=== PATIENT | male | born 1990 | race Caucasian/White ===

== ENCOUNTER → 2017-02-11 15:24 | Emergency (ER) | payer SELFPAY ==
[2017-02-11 16:09] LABS: Hematocrit 42 % (42-52); Hemoglobin 14.8 g/dl (14.0-18.0); Mean Corpuscular HGB Conc 35 g/dl (31-36); Mean Corpuscular Hemoglobin 30 pg (27-31); Mean Corpuscular Volume 86 fL (80-94); Mean Platelet Volume 8 um3 (7.4-10.4); Red Blood Count 4.91 10^6/ul (4.0-5.4); Red Cell Distribution Width 13 % (10.5-15)
[2017-02-11 16:55] LABS: Acetaminophen < 15 mcg/mL; Alcohol < 10 mg/dL (<10); Salicylate < 2.50 mg/dL (<30)
[2017-02-11 17:02] LABS: TSH (Thyroid Stimulating Horm) 0.15 mcIU/mL (0.34-5.60)
[2017-02-11 17:19] LABS: Urine Bilirubin Negative (Negative); Urine Glucose Negative (Negative); Urine Nitrite Negative (Negative)
[2017-02-11 17:24] LABS: ALT 14 U/L (7-52); AST 13 U/L (13-39); Albumin 4.5 g/dL (3.2-5.2); Alkaline Phosphatase 72 U/L (34-104); Anion Gap 7 mmol/L (2-11); BUN/Creatinine Ratio 16.1 (8-20); Blood Urea Nitrogen 14 mg/dL (6-24); CO2 Carbon Dioxide 25 mmol/L (22-32); Calcium 9.4 mg/dL (8.6-10.3); Chloride 104 mmol/L (101-111); EGFR African American 135.4 (>60); EGFR Non-African American 105.3 (>60); Globulin 3.2 g/dL (2-4); Glucose 96 mg/dL (70-100); Potassium 4.1 mmol/L (3.5-5.0); Sodium 136 mmol/L (133-145); Total Protein 7.7 g/dL (6.4-8.9)
[2017-02-11 17:27] LABS: Benzodiazepine Urine Screen None Detected (None Detect)
[2017-02-11 21:20] VITALS: BP 122/54
--- NOTE | 2017-02-13 20:59 | ED ---
Casimiro Lewis Angela, scribed for Kofi Stewart MD on 02/11/17 at 1542 . Psychiatric Complaint - HPI Summary HPI Summary: This pt is a 27 y/o male accompanied by his mother c/o opiates addiction x5 years. Pt reports that he "feels like he can't do anything without them" and gets anxiety. He states he snorts and takes pills PO, the last time he used was yesterday. Pt notes his mother convinced him to come to the ED as he didn't want to come. He denies SI or HI. Pt has never had mental evaluation in the past but is requesting one now. PMHx: depression (does not take medications for this). - History Of Current Complaint Chief Complaint: EDMentalHealth Time Seen by Provider: 02/11/17 15:34 Hx Obtained From: Patient Onset/Duration: Lasting Weeks - 5 years Timing: Weeks - 5 years Aggravating Factor(s): Drug Use - opiates Alleviating Factor(s): Other Has Suicidal: Denies: Thoughts, With A Plan Has Homicidal: Denies: Thoughts, With A Plan - Allergies/Home Medications Allergies/Adverse Reactions: Allergies Allergy/AdvReac Type Severity Reaction Status Date / Time [facility] Allergy Unknown Verified 02/11/17 16:22 Reaction Details PMH/Surg Hx/FS Hx/Imm Hx Endocrine/Hematology History: Denies: Hx Diabetes, Hx Thyroid Disease Cardiovascular History: Denies: Hx Hypertension Respiratory History: Reports: Hx Asthma Denies: Hx Chronic Obstructive Pulmonary Disease (COPD) GI History: Denies: Hx Ulcer Psychiatric History: Reports: Hx Depression, Hx Substance Abuse - Surgical History Surgery Procedure, Year, and Place: tonsillectomy - Immunization History Date of Tetanus Vaccine: last year, according to patient Infectious Disease History: No Infectious Disease History: Denies: Hx Clostridium Difficile, Hx Hepatitis, Hx Human Immunodeficiency Virus (HIV), Hx of Known/Suspected MRSA, Hx Shingles, Hx Tuberculosis, Hx Known/ Suspected VRE, Hx Known/Suspected VRSA, History Other Infectious Disease, Traveled Outside the [place] in Last 30 Days - Family History Known Family History: Negative: Hypertension, Diabetes - Social History Alcohol Use: Occasionally Substance Use Type: Reports: Marijuana Smoking Status (MU): Former Smoker Type: Cigarettes Amount Used/How Often: 5-10 daily Review of Systems Positive: Other - addiction to opiates. Negative: Fever, Chills ENT: Negative Cardiovascular: Negative Respiratory: Negative Gastrointestinal: Negative Genitourinary: Negative Positive: Anxious. Negative: Other - SI, HI All Other Systems Reviewed And Are Negative: Yes Physical Exam - Summary Physical Exam Summary: VITAL SIGNS: Reviewed. GENERAL: Patient is a well-developed and nourished female who is lying comfortable in the stretcher. Patient is not in any acute respiratory distress. HEAD AND FACE: No signs of trauma. ~No ecchymosis, hematomas or skull depressions. No sinus tenderness. EYES: PERRLA, EOMI x 2, No injected conjunctiva, no nystagmus. EARS: Hearing grossly intact. Ear canals and tympanic membranes are within normal limits. MOUTH: Oropharynx within normal limits. NECK: Supple, trachea is midline, no adenopathy, no JVD, no carotid bruit, no c- spine tenderness, neck with full ROM. CHEST: Symmetric, no tenderness at palpation LUNGS: Clear to auscultation bilaterally. No wheezing or crackles. CVS: Regular rate and rhythm, S1 and S2 present, no murmurs or gallops appreciated. ABDOMEN: Soft, non-tender. No signs of distention. No rebound no guarding, and no masses palpated. Bowel sounds are normal. EXTREMITIES: FROM in all major joints, no edema, no cyanosis or clubbing. NEURO: Alert and oriented x 3. No acute neurological deficits. Speech is normal and follows commands. SKIN: Dry and warm PSYCH: Depressed, quiet, and denies any suicidal thoughts or plan. No homicidal thoughts or plan. No signs of psychosis or pressure speech. No tangential speech. Triage Information Reviewed: Yes Vital Signs On Initial Exam: Initial Vitals Temp Pulse Resp BP Pulse Ox 98.7 F 84 18 128/72 97 02/11/17 15:25 02/11/17 15:25 02/11/17 15:25 02/11/17 15:25 02/11/17 15:25 Vital Signs Reviewed: Yes Diagnostics - Vital Signs Vital Signs Temp Pulse Resp BP Pulse Ox 02/11/17 15:25 98.7 F 84 18 128/72 97 - Laboratory Result Diagrams: 02/11/17 15:54 02/11/17 15:54 Lab Statement: Any lab studies that have been ordered have been reviewed, and results considered in the medical decision making process. Course/Dx - Course Assessment/Plan: This pt is a 27 y/o male accompanied by his mother c/o opioids addiction x5 years. Pt reports that he "feels like he can't do anything without them" and gets anxiety. He states he snorts and takes pills PO, the last time he used was yesterday. Pt notes his mother convinced him to come to the ED as he didn't want to come. He denies SI or HI. Pt has never had mental evaluation in the past but is requesting one now. PMHx: depression (does not take medications for this). Pt's mother reported to me that the pt has suicidal thoughts and intention. Urine toxicology is positive for opiates and cannabinoids. Pt was medically cleared and is waiting for MHE. 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 - Differential Dx/Clinical Impression Provider Diagnosis: Opiate addiction Discharge - Discharge Plan Condition: Stable Disposition: OTHER Discharge Disposition Comment: pt is signed out at shift change, pending dispo, awaiting MHE Referrals: No Primary Care Phys,NOPCP [Primary Care Provider] - The documentation as recorded by the Casimiro coello Angela accurately reflects the service I personally performed and the decisions made by me, Kofi Stewart MD.
== END ==
LOC: ED 15:24
DX: F11.20 Opioid dependence, uncomplicated (principal); F41.9 Anxiety disorder, unspecified; Z87.891 Personal history of nicotine dependence
CPT/HCPCS: 36415; 80053; 80307; 80320; 80329; 81003; 84443; 85025; 99284; G0480

== ENCOUNTER 2017-07-02 07:48 | Emergency (ER) | payer MEDICAID, OTHER ==
[2017-07-02 08:01] VITALS: BP 127/77
[2017-07-02] MEDS ORDERED: Ketorolac INJ* 60 MG/2 ML VIAL IM ONE (08:08)
[2017-07-02] MEDS ORDERED: Dexamethasone IV* 4 MG/ML 1 ML (4 MG) IV SLOW PU ONE (08:08)
[2017-07-02] MEDS ORDERED: Dexamethasone IV* 4 MG/ML 1 ML (4 MG) IM ONE (08:13)
--- NOTE | 2017-07-02 08:25 | UC ---
Goyo Lewis Nilda, scribed for Kofi Stewart MD on 07/02/17 at 0809 . Ear Complaint HPI - HPI Summary HPI Summary: This patient is a 27 year old M presenting to [facility] [place] a chief complaint of constant right ear pain since last night. Patient states he attempted to treat the ear pain with peroxide, but pain has only worsened today. The patient rates the pulsating, non-radiating pain 8/10 in severity. Patient denies sore throat and headache. - History of Current Complaint Chief Complaint: UCEar Stated Complaint: EAR PAIN Time Seen by Provider: 07/02/17 07:59 Hx Obtained From: Patient Onset/Duration: Sudden Onset, Lasting Days, Still Present Severity Currently: Severe Pain Intensity: 8 Pain Scale Used: 0-10 Numeric Aggravating Factors: Other - peroxide Alleviating Factors: Nothing Associated Signs/Symptoms: Negative: Discharge, Hearing Loss, Trauma to Ear, URI Symptoms - Allergies/Home Medications Allergies/Adverse Reactions: Allergies Allergy/AdvReac Type Severity Reaction Status Date / Time Cefaclor [From [facility]] Allergy Unknown Verified 07/02/17 08:01 Reaction Details PMH/Surg Hx/FS Hx/Imm Hx Previously Healthy: Yes - Surgical History Surgical History: Yes Surgery Procedure, Year, and Place: tonsillectomy - Family History Known Family History: Negative: Hypertension, Diabetes - Social History Alcohol Use: Occasionally Substance Use Type: Marijuana Substance Use Comment - Amount & Last Used: opiates, snorts 02/10/17 Smoking Status (MU): Former Smoker Type: Cigarettes Amount Used/How Often: 5-10 daily When Did the Patient Quit Smoking/Using Tobacco: 05/01 - Immunization History Most Recent Tetanus Shot: 2011 Review of Systems ENT: Ear Ache - right, Other - negative sore throat Neurological: Other - negative headache All Other Systems Reviewed And Are Negative: Yes Physical Exam Triage Information Reviewed: Yes Vital Signs: Initial Vital Signs Temp 98.5 F 07/02/17 07:58 Pulse 57 07/02/17 07:58 Resp 18 07/02/17 07:58 BP 127/77 07/02/17 07:58 Pulse Ox 97 07/02/17 07:58 Vital Signs Reviewed: Yes - Additional Comments Vital signs: Reviewed Gen.: Patient is a well developed and nourished male with acute distress secondary to pain. Head: Normacephalic and atraumatic Eyes: PERRLA, EOMI x2. Ears: Right ear canal with exudate and swelling and TM erythema. and Left ear canal and TM WNL Nose and mouth: Nose with dry mucosa and clear discharge, negative pharyngeal erythema with no exudate. Neck: Supple, no submandibular and anterior cervical lymphadenopathy. No JVD Lungs: CTA B/L CVS: S1 & S2 present. No murmurs appreciated. ABDOMEN: Soft NT w/ positive BS. EXT: FROM x 4 NEURO: A+O X 3. Ear Complaint Course/Dx - Course Course Of Treatment: 27 y/o male with positive OM and OE. He was given Toradol and decadron for the the pain and swelling. He was given a Rx for Augmentin for the OM and Ofloxacin for OE. Patient will f/u with PCP in the next 3 days. If symptoms worsen return to the or go to the ED for further assestment. - Differential Dx/Diagnosis Differential Diagnosis/HQI/PQRI: Otitis Externa, Otitis Media, Perforated TM, Pharyngitis Provider Diagnoses: Otitis Media. Otitis Externa Discharge - Discharge Plan Condition: Stable Disposition: HOME Prescriptions: Amoxicillin/Clavulanate TAB* [Augmentin TAB 875*] 875 mg PO BID #220 tab Ofloxacin 0.3% OTIC.MANUELITO* [Floxin 0.3% OTIC.MANUELITO*] 1 drop .SEE ORDER TID #1 btl Patient Education Materials: Otitis Externa (ED), Serous Otitis Media (ED) Referrals: No Primary Care Phys,NOPCP [Primary Care Provider] - [facility] [place] [facility] [Outside] Additional Instructions: Take medications as instructed Increase your fluid intake Return to the if symptoms worsen The documentation as recorded by the Goyo coello Nilda accurately reflects the service I personally performed and the decisions made by me, Kofi Stewart MD.
== END 2017-07-02 08:43 | disposition home or self-care (01) ==
LOC: UCEAST 07:48
DX: H66.91 Otitis media, unspecified, right ear (principal); Z87.891 Personal history of nicotine dependence; H60.91 Unspecified otitis externa, right ear
CPT/HCPCS: 96372; 99212; G0463; J1100; J1885

== ENCOUNTER 2017-07-04 17:05 | Emergency (ER) | payer OTHER ==
[2017-07-04 17:26] VITALS: BP 125/84
--- NOTE | 2017-07-04 17:39 | ED ---
Respiratory - HPI Summary HPI Summary: 27M presents with cough for past day. He states was seen here two days ago and was diagnosed with right OM and OE. has been taking medication but not enough drops of ofloxacin which educated patient on. states developed cough and SOB with cough yesterday. he denies any medical history. He was a smoker. He admits to sore throat with cough. He denies any chest pain. He denies any abdominal pain. He is here because wants cough medication. his ear is feeling better. - History of Current Complaint Chief Complaint: UCGeneralIllness Stated Complaint: RESP COMPLAINT Time Seen by Provider: 07/04/17 17:29 Pain Intensity: 0 - Allergy/Home Medications Allergies/Adverse Reactions: Allergies Allergy/AdvReac Type Severity Reaction Status Date / Time cefaclor [From Ceclor] Allergy Intermediate Rash Verified 07/04/17 17:27 PMH/Surg Hx/FS Hx/Imm Hx Endocrine/Hematology History: Denies: Hx Diabetes, Hx Thyroid Disease Cardiovascular History: Denies: Hx Hypertension Respiratory History: Reports: Hx Asthma Denies: Hx Chronic Obstructive Pulmonary Disease (COPD) GI History: Denies: Hx Ulcer Psychiatric History: Reports: Hx Depression, Hx Substance Abuse Denies: Hx Eating Disorder, Hx of Violent Episodes Against Others - Surgical History Surgery Procedure, Year, and Place: T&A- child - Immunization History Date of Tetanus Vaccine: last year, according to patient Infectious Disease History: Yes Infectious Disease History: Denies: Hx Clostridium Difficile, Hx Hepatitis, Hx Human Immunodeficiency Virus (HIV), Hx of Known/Suspected MRSA, Hx Shingles, Hx Tuberculosis, Hx Known/ Suspected VRE, Hx Known/Suspected VRSA, History Other Infectious Disease, Traveled Outside the [place] in Last 30 Days - Family History Known Family History: Negative: Hypertension, Diabetes - Social History Alcohol Use: Occasionally Substance Use Type: Reports: Marijuana Substance Use Comment - Amount & Last Used: opiates, snorts 02/10/17 Smoking Status (MU): Former Smoker Type: Cigarettes Amount Used/How Often: 5-10 daily Review of Systems Negative: Fever Positive: Ear Ache Negative: Chest Pain Positive: Shortness Of Breath, Cough All Other Systems Reviewed And Are Negative: Yes Physical Exam Triage Information Reviewed: Yes Vital Signs On Initial Exam: Initial Vitals Temp Pulse Resp BP Pulse Ox 98.3 F 84 20 125/84 96 07/04/17 17:22 02/19/18 17:22 07/04/17 17:22 07/04/17 17:22 07/04/17 17:22 Vital Signs Reviewed: Yes Appearance: Positive: Well-Appearing Skin: Positive: Warm, Dry Head/Face: Positive: Normal Head/Face Inspection Eyes: Positive: Normal, EOMI, CLAIRE, Conjunctiva Clear ENT: Positive: Pharynx normal, TM red - right, Other - canal right edematous and erythematous Neck: Positive: Supple, Nontender, No Lymphadenopathy Respiratory/Lung Sounds: Positive: Breath Sounds Present, Other - congestion present Cardiovascular: Positive: Normal, RRR Abdomen Description: Positive: Nontender, Soft Bowel Sounds: Positive: Present Musculoskeletal: Positive: Normal Neurological: Positive: Normal Psychiatric: Positive: Normal Diagnostics - Vital Signs Vital Signs Temp Pulse Resp BP Pulse Ox 07/04/17 17:22 98.3 F 84 20 125/84 96 - Laboratory Lab Statement: Any lab studies that have been ordered have been reviewed, and results considered in the medical decision making process. Disposition - Course Course Of Treatment: 27M presents with cough for past day. He states was seen here two days ago and was diagnosed with right OM and OE. has been taking medication but not enough drops of ofloxacin which educated patient on. states developed cough and SOB with cough yesterday. he denies any medical history. He was a smoker. He admits to sore throat with cough. He denies any chest pain. He denies any abdominal pain. He is here because wants cough medication. his ear is feeling better. on exam right otitis media is resolving , otitis externa right still presents. lungs some congestion present. antibiotic on will cover for pneumonia. will add prednisone, tessalon, and inhaler. will have establish care with primary to follow up as blood pressure in pre-htn range. patient understand and agrees with plan. - Differential Dx - Cardiopulmonary Differential Diagnoses - Cardiopulmonary: Bronchitis, Influenza, Lower Resp Infection - Diagnoses Provider Diagnoses: Upper respiratory infection, Otitis externa of right ear Discharge - Discharge Plan Condition: Good Disposition: HOME Prescriptions: Albuterol HFA INHALER* [Ventolin HFA Inhaler*] 1 puff INH Q4H PRN #1 mdi PRN Reason: Cough Benzonatate CAP* [Tessalon 100 MG CAP*] 100 mg PO TID PRN #21 cap PRN Reason: Cough predniSONE TAB* [Deltasone TAB*] 50 mg PO DAILY #5 tab Patient Education Materials: Upper Respiratory Infection (ED) Referrals: [facility] [place] [facility] [Outside] Additional Instructions: Continue antibiotic as prescribed Use Tessalon three times a day for cough Use inhaler one puff every 4 hours for cough as needed Take steroid once a day for 5 days Use saline in the nose for nasal congestion Use humidifier or place warm bowls of water around the room for cough Cough can last up to 4 weeks Establish care with primary Return to ED if develop any new or worsening symptoms
== END 2017-07-04 18:00 | disposition home or self-care (01) ==
LOC: UCEAST 17:05
DX: J06.9 Acute upper respiratory infection, unspecified (principal); H60.91 Unspecified otitis externa, right ear; J45.909 Unspecified asthma, uncomplicated; F32.9 Major depressive disorder, single episode, unspecified; Z88.1 Allergy status to other antibiotic agents; Z87.891 Personal history of nicotine dependence
CPT/HCPCS: 99212; G0463

== ENCOUNTER 2018-02-23 16:35 | Inpatient (IN) | payer OTHER ==
--- NOTE | 2018-02-23 16:52 | ED ---
Neurological HPI - HPI Summary HPI Summary: 28 y/o male presents ot the ED c/o sudden onset L side facial numbness starting 1hr and 30 minutes [facility] at around 15:30. Pt c/o "pins and needles" sensation at L side face. Pt also c/o general L side weakness with difficulty walking. Over the past couple of weeks the pt c/o intermittent L arm numbness, resolving spontaneously.d FHx - NH grandfather. - History of Current Complaint Stated Complaint: LT SIDE NUMBNESS Hx Obtained From: Patient Onset/Duration: Started minutes ago, Still Present Timing: Constant Neurological Deficit Location: Facial, LUE, LLE Character: Weak, Numbness/Tingling - face Aggravating: Nothing Alleviating: Nothing Associated Signs and Symptoms: Positive: Weakness, Numbness - Allergy/Home Medications Allergies/Adverse Reactions: Allergies Allergy/AdvReac Type Severity Reaction Status Date / Time cefaclor [From [facility]] Allergy Intermediate Rash Verified 07/04/17 17:27 Home Medications: Home Medications NK [No Home Medications Reported] 02/23/18 [History Confirmed 02/23/18] PMH/Surg Hx/FS Hx/Imm Hx Previously Healthy: No Endocrine/Hematology History: Denies: Hx Diabetes, Hx Thyroid Disease Cardiovascular History: Denies: Hx Hypertension Respiratory History: Reports: Hx Asthma Denies: Hx Chronic Obstructive Pulmonary Disease (COPD) GI History: Denies: Hx Ulcer Psychiatric History: Reports: Hx Depression, Hx Substance Abuse Denies: Hx Eating Disorder, Hx of Violent Episodes Against Others - Surgical History Surgery Procedure, Year, and Place: T&A- child - Immunization History Date of Tetanus Vaccine: last year, according to patient Infectious Disease History: Denies: Hx Clostridium Difficile, Hx Hepatitis, Hx Human Immunodeficiency Virus (HIV), Hx of Known/Suspected MRSA, Hx Shingles, Hx Tuberculosis, Hx Known/ Suspected VRE, Hx Known/Suspected VRSA, History Other Infectious Disease - Family History Known Family History: Positive: Cardiac Disease - Grandfather of [place] Negative: Hypertension, Diabetes - Social History Alcohol Use: Occasionally Hx Substance Use: Yes Substance Use Type: Reports: Heroin, Marijuana Substance Use Comment - Amount & Last Used: opiates, snorts 02/10/17 Hx Tobacco Use: Yes Smoking Status (MU): Current Every Day Smoker Type: Cigarettes Amount Used/How Often: 5-10 daily Review of Systems Constitutional: Negative Eyes: Negative ENT: Negative Cardiovascular: Negative Respiratory: Negative Gastrointestinal: Negative Genitourinary: Negative Musculoskeletal: Negative Skin: Negative Neurological: Other - facial numbness L side Positive: Weakness - L side general weakness Psychological: Normal All Other Systems Reviewed And Are Negative: Yes Physical Exam - Summary Physical Exam Summary: VITAL SIGNS: Reviewed. GENERAL: Patient is a well-developed and nourished male who is lying comfortable in the stretcher. Patient is not in any acute respiratory distress. HEAD AND FACE: No signs of trauma. No ecchymosis, hematomas or skull depressions. No sinus tenderness. EYES: PERRLA, EOMI x 2, No injected conjunctiva, no nystagmus. No photophobia. EARS: Hearing grossly intact. Ear canals and tympanic membranes are within normal limits. MOUTH: Oropharynx within normal limits. NECK: Supple, trachea is midline, no adenopathy, no JVD, no carotid bruit, no c- spine tenderness, neck with full ROM. No meningeal signs, no Kernig's or brudzinskis signs. CHEST: Symmetric, no tenderness at palpation LUNGS: Clear to auscultation bilaterally. No wheezing or crackles. CVS: Regular rate and rhythm, S1 and S2 present, no murmurs or gallops appreciated. ABDOMEN: Soft, non-tender. No signs of distention. No rebound no guarding, and no masses palpated. Bowel sounds are normal. EXTREMITIES: FROM in all major joints, no edema, no cyanosis or clubbing. NEURO: See NIH section. Alert and oriented x 3. Speech is normal and follows commands. SKIN: Dry and warm GCS: 15 (unless he states otherwise) Triage Information Reviewed: Yes Vital Signs Reviewed: Yes Diagnostics - Laboratory Result Diagrams: 02/24/18 04:20 02/24/18 04:20 Lab Statement: Any lab studies that have been ordered have been reviewed, and results considered in the medical decision making process. - Radiology CXR Xray Interpretation: No Acute Changes - No radiographic evidence for acute cardiopulmonary disease noted on this portable XR. Radiology Interpretation Completed By: Radiologist - ED physician reviews and agrees - CT BRAIN CT CT Interpretation Completed By: Radiologist - Moderate paranasal sinus mucosal disease in this otherwise normal CT of the brain. Findings reported over the telephone to Dr. Stewart at 1713 hours on February 23, 2018. - EKG 1 EKG Interpretation: 17:10 - SR @ [address] elevations. NIH Scale - NIH Scale Level of Consciousness: Alert/Keenly Responsive Ask Patient the Month and His/Her Age: Both Correct Ask Pt to Open/Close Eyes and Software Licensing Analyst/Release Non-Paretic Hand: Both Correctly Best Gaze (Only Horizontal Eye Movement): Normal Visual Field Testing: No Visual Loss Facial Paresis-Pt to Smile & Close Eyes or Grimace Symmetry: Normal/Symmetrical Motor Function - Right Arm: No Drift-Holds 10 Seconds Motor Function - Left Arm: Drifts LT 10 seconds Motor Function - Right Leg: No Drift-Holds 10 Seconds Motor Function - Left Leg: Drifts LT 10 seconds Limb Ataxia-Must be out of Proportion to Weakness Present: Absent Sensory (Use Pinprick to Test Arms/Legs/Trunk/Face): Pinprick Less on Affected Best Language (Describe Picture, Name Items): No Aphasia Dysarthria (Read Several Words): Normal Extinction and Inattention: No Abnormality Total Score: 3 Course/Dx - Course Course Of Treatment: Warner Walsh called at 16:51. Dr. Kendrick in room at 16:57. Brain CT performed at 17:00. CT results called in by Dr. Araujo at 17:13. Assessment/Plan: Pt is a 28 y/o male presents to the ED c/o sudden onset L side facial numbness starting 1hr and 30 minutes [facility] COACH at around 15:30. Pt c/o "pins and needles" sensation at L side face. Pt also c/o general L side weakness with difficulty walking. Over the past couple of weeks the pt c/o intermittent L arm numbness, resolving spontaneously.d FHx - NH grandfather. As the patient went into the ED room I examined the patient and I noticed that the NIH score is equal to 3. The patient has a drift in the left upper extremity and left lower extremity and the sensation is decreased in both of her left upper and lower extremity. Therefore I called the [facility]. Patient was placed in the shelter monitor, 2 IV assesses were started. Head CT impression: No acute interconnected pathology. Dr. Kendrick from neurology at bedside and after his examinations and review of his history, vital signs and comorbidities he decided to give the TPA. The patient gave consent that he understands the risk and benefits of the TPA and he gave consent to Dr. Kendrick. Patient's mother also agreed for the TPA. Blood work without any significant abnormality. At this time we are still awaiting for the CTA of head and neck report. The patient will be signed out to Dr. Moralez at shift change. If the CTA area of the head or neck is negative the patient will be admitted to the hospital services to the ICU. If the CT is positive they will have to contact Dr. Kendrick for advice for further management of the patient. At this point the patient continues to be hemodynamically stable alert oriented 3. - Diagnoses Provider Diagnoses: Ischemic cerebrovascular accident (CVA), Received intravenous tissue plasminogen activator (t-PA) in emergency department - Critical Care Time Critical Care Time: 75-104 min Discharge - Sign-Out/Discharge Documenting (check all that apply): Sign-Out Patient Signing out patient TO: Gwendolyn Moralez Receiving patient FROM: Kofi Stewart - Discharge Plan Condition: Stable Disposition: ADMITTED TO [facility] - Billing Disposition and Condition Condition: STABLE Disposition: Admitted to [facility] - Attestation Statements Document Initiated by Scribe: Yes Documenting Scribe: Rodo Tamayo Provider For Whom Scribe is Documenting (Include Credential): Kofi Stewart MD Scribe Attestation: Rodo Lewis, scribed for Kofi Stewart MD on 02/24/18 at 0724. Scribe Documentation Reviewed: Yes Provider Attestation: The documentation as recorded by the Rodo coello accurately reflects the service I personally performed and the decisions made by , Kofi Stewart MD
[2018-02-23] MEDS ORDERED: NS 0.9% 1000 ML* 1,000 ML IV ONE (17:00)
[2018-02-23 17:07] LABS: ABS Basophils 0.1 10^3/ul (0-0.2); ABS Eosinophils 0.4 10^3/ul (0-0.6); ABS Lymphocytes 2.3 10^3/ul (1.0-4.8); ABS Monocytes 0.4 10^3/ul (0-0.8); ABS Neutrophils 3.8 10^3/ul (1.5-7.7); ABS Nucleated RBC 0 10^3/ul; Eosinophil % 5.7 % (0-6); Hematocrit 40 % (42-52); Lymphocyte % 32.7 % (25-47); Mean Corpuscular HGB Conc 35 g/dl (31-36); Mean Corpuscular Hemoglobin 31 pg (27-31); Mean Corpuscular Volume 88 fL (80-94); Mean Platelet Volume 7.2 um3 (7.4-10.4); Nucleated Red Blood Cells % 0; Platelet Count 170 10^3/ul (150-450); Red Blood Count 4.54 10^6/ul (4.00-5.40); Red Cell Distribution Width 13 % (10.5-15)
[2018-02-23] MEDS ORDERED: ALTEPLASE IV ONE ×2 (17:10)
[2018-02-23] MEDS ORDERED: Alteplase* 100 MG VIAL ONE (17:14)
[2018-02-23 17:17] LABS: INR 0.85 (0.77-1.02)
--- NOTE | 2018-02-23 17:18 | RAD ---
INDICATION: Left arm and leg tingling COMPARISON: None. TECHNIQUE: Contiguous axial sections of the brain were obtained from the skull base to the vertex without contrast. FINDINGS: The ventricles, cisterns and sulci are within normal limits. The montague-white matter differentiation is adequately maintained and there is no sulcal effacement. No significant focal abnormality or mass effect is present. There is no evidence for intracranial hemorrhage. No significant focal osseous abnormality is present. There is moderate mucosal thickening of the bilateral ethmoid air cells. The remaining visualized paranasal sinuses are adequately aerated. The mastoid air cells are well aerated bilaterally. IMPRESSION: Moderate paranasal sinus mucosal disease in this otherwise normal CT of the brain. Findings reported over the telephone to Dr. Stewart at 1713 hours on February 23, 2018.
[2018-02-23 17:25] LABS: EGFR Non-African American 100.5 (>60)
[2018-02-23] MEDS ORDERED: Iohexol 350* (CONTRAST) 500 ML MDV IV ONE (17:26)
[2018-02-23] MEDS ORDERED: Thiamine TAB* 100 MG TAB PO ONE (17:31)
[2018-02-23] MEDS ORDERED: Folic Acid TAB* 1 MG PO ONE (17:32)
--- NOTE | 2018-02-23 17:36 | RAD ---
INDICATION: Left extremity numbness COMPARISON: Chest x-ray February 15, 2013 TECHNIQUE: Single AP portable view of the chest was obtained. FINDINGS: Image quality is compromised due to the relative inferiority of a portable chest x-ray. The heart and mediastinum exhibit normal size and contour. The lungs are grossly clear. There is no evidence of a large pleural effusion. Visualized bones are normal for the patient's age. IMPRESSION: No radiographic evidence for acute cardiopulmonary abnormality on this portable chest x-ray.
[2018-02-23 18:41] LABS: Urine Appearance Clear; Urine Blood Negative (Negative); Urine Color Yellow; Urine Ketones Negative (Negative); Urine Protein Negative (Negative); Urine Specific Gravity 1.025 (1.010-1.030); Urine Urobilinogen Negative (Negative)
--- NOTE | 2018-02-23 19:15 | RAD ---
EXAM: CT Angiography Head With Intravenous Contrast CLINICAL HISTORY: 28 years old, male; Signs and symptoms; Weakness; Additional info: Left side weakness TECHNIQUE: Axial computed tomographic angiography images of the head with intravenous contrast using CT angiography protocol. All CT scans at this facility use at least one of these dose optimization techniques: automated exposure control; mA and/or kV adjustment per patient size (includes targeted exams where dose is matched to clinical indication); or iterative reconstruction. 3D and MIP reconstructed images were created and reviewed. Coronal and sagittal reformatted images were created and reviewed. CONTRAST: 40 mL of OMNIPAQUE 350 administered intravenously. COMPARISON: No relevant prior studies available. FINDINGS: Right internal carotid artery: No acute findings. Intracranial segment is patent with no significant stenosis. No aneurysm. Right anterior cerebral artery: Unremarkable. No occlusion or significant stenosis. No aneurysm. Right middle cerebral artery: Unremarkable. No occlusion or significant stenosis. No aneurysm. Right posterior cerebral artery: Unremarkable. No occlusion or significant stenosis. No aneurysm. Right vertebral artery: Unremarkable as visualized. Left internal carotid artery: No acute findings. Intracranial segment is patent with no significant stenosis. No aneurysm. Left anterior cerebral artery: Unremarkable. No occlusion or significant stenosis. No aneurysm. Left middle cerebral artery: Unremarkable. No occlusion or significant stenosis. No aneurysm. Left posterior cerebral artery: Unremarkable. No occlusion or significant stenosis. No aneurysm. Left vertebral artery: Unremarkable as visualized. Basilar artery: Unremarkable. No occlusion or significant stenosis. No aneurysm. IMPRESSION: Normal head CTA. EXAM: CT Angiography Neck With Intravenous Contrast CLINICAL HISTORY: 28 years old, male; Signs and symptoms; Weakness; Additional info: Left side weakness TECHNIQUE: Axial computed tomographic angiography images of the neck with intravenous contrast using CT angiography protocol. All CT scans at this facility use at least one of these dose optimization techniques: automated exposure control; mA and/or kV adjustment per patient size (includes targeted exams where dose is matched to clinical indication); or iterative reconstruction. 3D and MIP reconstructed images were created and reviewed. Coronal and sagittal reformatted images were created and reviewed. CONTRAST: 40 mL of OMNIPAQUE 350 administered intravenously. 40 mL of OMNIPAQUE 350 administered intravenously. COMPARISON: No relevant prior studies available. FINDINGS: VASCULATURE: Right common carotid artery: Unremarkable. No significant stenosis. No dissection or occlusion. Right internal carotid artery: Unremarkable. Extracranial segment is patent with no significant stenosis. No dissection or occlusion. Right external carotid artery: Unremarkable. No occlusion. Right vertebral artery: Unremarkable. No significant stenosis. No dissection or occlusion. Left common carotid artery: Unremarkable. No significant stenosis. No dissection or occlusion. Left internal carotid artery: Unremarkable. Extracranial segment is patent with no significant stenosis. No dissection or occlusion. Left external carotid artery: Unremarkable. No occlusion. Left vertebral artery: Unremarkable. No significant stenosis. No dissection or occlusion. NECK: Bones/joints: No acute fracture. No dislocation. Soft tissues: Unremarkable as visualized. No mass. CAROTID STENOSIS REFERENCE USING NASCET CRITERIA: % ICA stenosis = (1 - narrowest ICA diameter/diameter of distal cervical ICA) x 100. Mild - <50% stenosis. Moderate - 50-69% stenosis. Severe - 70-94% stenosis. Near occlusion - 95-99% stenosis. Occluded - 100% stenosis. IMPRESSION: Normal neck CTA. To contact Advisor Client Match with a general question: [facility] - [phone] For direct physician to physician contact: Physician Hotline - [phone] [facility] [place] ([facility] Facility ID #[id number])
--- NOTE | 2018-02-23 19:28 | ED ---
Progress - Progress Note Progress Note: Patient was signed out from Dr. Stewart to Dr. Moralez upon physician shift change pending CTA Head. - Results/Orders Results/Orders: CTA Head with IV Contrast Interpreted by radiologist. Impression: Nml head CTA, nml neck CTA Dr. Moralez has reviewed this report. CT Brain Interpreted by radiologist. Impression: No acute intracranial abnormality. Dr. Araujo called results in to Dr. Moralez at 20:04. Re-Evaluation - Re-Evaluation 1st re-evaluation Re-Evaluation Time: 19:15 Change: Worse Comment: Patient now complains of a sudden onset ROBLES, worse than before, that began a few minutes ago. He also notes that the numbness in arm has not improved. Course/Dx - Course Course Of Treatment: CTA Head was negative. The second CT Brain results were negative and were called in by Dr. Araujo at 20:04. Hospitalist was paged at 19: 54. Discussed patient care with Dr. You at 21:45. Patient will be admitted to [facility] with dx CVA post-TPA. Patient is agreeable with this plan. - Diagnoses Provider Diagnoses: Ischemic cerebrovascular accident (CVA), Received intravenous tissue plasminogen activator (t-PA) in emergency department - Provider Notifications Discussed Care Of Patient With: Niki You Time Discussed With Above Provider: 21:45 Instructed by Provider To: Admit As Inpatient - Critical Care Time Critical Care Time: 75-104 min Discharge - Sign-Out/Discharge Documenting (check all that apply): Patient Departure, Receiving Sign-Out - from Dr. Stewart to Dr. Moralez upon provider shift change Receiving patient FROM: Kofi Stewart - Discharge Plan Condition: Stable Disposition: ADMITTED TO [facility] - Billing Disposition and Condition Condition: STABLE Disposition: Admitted to [facility] - Attestation Statements Scribe Documentation Reviewed: Yes
--- NOTE | 2018-02-23 20:08 | RAD ---
INDICATION: Change in mental status following TPA administration COMPARISON: Same day CTA of the head and neck as well as CT of the brain acquired at 1704 hours TECHNIQUE: Contiguous axial sections of the brain were obtained from the skull base to the vertex without contrast. FINDINGS: The ventricles, cisterns and sulci are within normal limits. The montague-white matter differentiation is adequately maintained and there is no sulcal effacement. No significant focal abnormality or mass effect is present. There is no evidence for intracranial hemorrhage. No significant focal osseous abnormality is present. Similar to prior CT of the brain there is moderate mucosal thickening of the bilateral ethmoid air cells. The mastoid air cells are well aerated bilaterally. IMPRESSION: No acute intracranial abnormality. Reported to Dr. Moralez over the telephone at 2000 hours on February 23, 2018.
--- NOTE | 2018-02-23 21:45 | CONS ---
CONSULTATION REPORT: DATE OF CONSULT: 02/23/2018. PATIENT OF: Dr. Stewart. HISTORY: This is a 27-year-old right-handed man, who at 3:30 while talking his ex about a stressful conversation involving his son developed sudden onset of left- sided numbness, tingling, and weakness involving the left side of the entire body. He was brought by ambulance here at 4:35, and he was apparently quite weak at that point, but this quickly improved. He has had no prior strokes, but more than 2 weeks ago, he complained of some left arm numbness, but there was no weakness or other symptoms with that. He has had no headache, no speech problems, no visual disturbance, any stroke complaints or symptoms at this point. PAST MEDICAL HISTORY: He has had deviated septum. MEDICATIONS: He is on no medications. ALLERGIES: He is allergic to CECLOR. FAMILY HISTORY: He notes no relevant family history. There is no diabetes or hypertension in the family. SOCIAL HISTORY: He has a history of marijuana use, but also may have relapsed on his heroin, he smokes about a half a pack a day. Just occasional alcohol use. REVIEW OF SYSTEMS: Negative in all 14 spheres other than HPI. PHYSICAL EXAM: His NIH Stroke Scale at 5 p.m. was a 3 for a partial loss of sensation on the left side, limb ataxia in his left upper extremity but not his lower, and he had a left arm drift. He also appeared quite anxious, but was able to calm down to some degree. Cranial nerves II through XII were intact. There is no clear facial weakness. Fundi were benign. Motor exam is abnormal only for the limb ataxia strength is 5/5 bilaterally. Reflexes were 2 and equal , toes were equivocal. Speech was intact. DIAGNOSTIC STUDIES/LAB DATA: His CT scan was reviewed and was read as normal. His laboratory results show white count of 7, platelets 170, hematocrit of 40. INR and chemistries are pending. IMPRESSION AND PLAN: He is in the process of getting tPA at this point for a possible stroke. I discussed this with him and his mother that I was not 100% sure that this was a stroke, this could be stress-related event, but if it is clearly possible that he was having a stroke, the etiology is not clear at this point. If it is a stroke, urine tox screen will be sent for the possibility of involvement of drugs. He will need a CTA in the near future and this was discussed with the family. Rest of the workup will include echo, blood work when he is out of the acute phase. Management of his blood pressure as per protocol and an MRI scan at 24 hours and then we will most likely begin him on a platelet agent if he starts to have any arrhythmia then or if his echo shows clot, then we would need to treat him with anticoagulation. His blood work should include a fasting lipid, but not tomorrow. I have discussed this case with ROD Goldberg, as well who may be the admitting provider. Thank you for sharing his case. [id number]/[facility] #: [id number] LOGAN
[2018-02-23] MEDS ORDERED: Acetaminophen TAB* 325 MG PO PRN (22:15)
[2018-02-23] MEDS ORDERED: Mouth Piece, Nicotine* 1 EACH CARTRIDGE INH PRN (22:15)
--- NOTE | 2018-02-24 01:59 | HP ---
CC: Dr. Niki You* ADMISSION HISTORY AND PHYSICAL: DATE OF ADMISSION: 02/23/18. PRIMARY CARE PROVIDER: Unknown at this time. MY ATTENDING WHILE IN THE HOSPITAL: Dr. Niki You* (dictated by ORD Cody). CHIEF COMPLAINT: Left-sided numbness and weakness with word finding difficulty. HISTORY OF PRESENT ILLNESS: Mr. Luciano is a 28-year-old male with past medical history significant only for heroin abuse, who presents to the emergency department after he was having an animated conversation with the mother of his child on the phone at approximately 3:30 p.m. and suddenly developed word finding difficulty, weakness, paresthesias, and numbness on the entirety of his left side with difficulty forming words and inability to holding anything in his left hand. He dropped the phone. His girlfriend called 911. He was transported to the emergency department. He was found to have an NIH stroke scale 3. Brain CT was negative for bleeding and he was getting tPA, seen in consultation by Dr. Jeronimo Kendrick of Neurology. The patient had 2 episodes like this to approximately within last couple of weeks where he developed numbness only in his left arm, which went away both which time he was at rest and not feeling stressful. The patient has never had any other episodes like this. The patient had 2 episodes in his life where he passed out without warning. He had no residual weakness upon awakening. He has no known history of seizures. The patient states that he also had some blurring of the corner of his eye soon after this began, but it went away. The patient had no recent illnesses. The patient denies recent IV drug abuse or any other illicit drug abuse. The patient 2 weeks ago did have an episode where he was taken care by his mother for feeling very weak and having no known fevers, but significant amounts of chills. He did not seek medical attention. He had no other symptoms in this past on its own without intervention. The patient upon evaluation had residual neurological deficits and despite tPA that they were improving somewhat. The patient will be admitted to the ICU for post tPA protocol. The patient developed a headache after tPA, which resolved with no intervention. PAST MEDICAL HISTORY: Heroin abuse. PAST SURGICAL HISTORY: Tonsillectomy and deviated septum. MEDICATIONS: None. ALLERGIES: CEFACLOR. FAMILY HISTORY: The patient's parents are still alive and has no known health problems. One of the patient's grandparents with [place]. One of the patient' s grandparents with Alzheimer's. The patient has 2 other grandparents who alive and well. The patient has 1 sibling, who is alive and well. SOCIAL HISTORY: The patient smokes approximately half a pack a day. The patient drinks occasional alcohol. The patient denies illicit drugs; however, his urine toxicology screen came back positive for opiates and cannabinoids. 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 The patient has a girlfriend and has 1 child. The patient declines to elect a surrogate decision maker at this time. REVIEW OF SYSTEMS: A 14-point review of systems was reviewed and is negative except as above in the HPI. PHYSICAL EXAMINATION GENERAL: The patient is a 28-year-old male, who appears stated age, has a left - sided facial droop, and is sitting comfortably in bed, in no acute distress. VITAL SIGNS: Temperature 98.4, pulse rate 68, respiratory rate 16, oxygen saturation 96% on room air, blood pressure 112/76. NECK: Supple, nontender. No lymphadenopathy. No carotid bruits auscultated. No JVD. RESPIRATORY: Clear to auscultation bilaterally. No wheezes, rales or rhonchi. Good air exchange bilaterally. CARDIAC: Regular rate and rhythm. No clicks, murmurs, gallops or rubs. Pulses are 2+ in the bilateral dorsalis pedis, posterior tibial, and radial areas. ABDOMEN: Soft, nontender, nondistended. Bowel sounds present and normoactive in all 4 quadrants. No hepatosplenomegaly. No abdominal bruits auscultated. No hepatojugular reflux. GENITOURINARY: No suprapubic or CVA tenderness. NEURO: The patient has left-sided facial droop. The patient's left eye seems to be more closed than his right. The patient has normal sensation and movement in his forehead, but has decreased sensation and paresthesias on the left side of his face. The patient has a left-sided facial droop. The patient is able to hold his eye closed, but against force. The patient's facial droop corrects while smiling. The patient does not move this area while puffing on his cheeks. The patient's palate elevates symmetrically. The patient has 4/5 strength on the left upper and lower extremities distally and proximally 5/5 strength on the right upper and lower extremities. Reflexes are 2+ in the right biceps, patellar, and Achilles areas, slightly increased in the left biceps, patellar, and Achilles areas. Babinski is nonreactive bilaterally. Cerebellar testing performed without difficulty including [id number] and rapid alternating movements. PSYCHIATRIC: Pleasant and cooperative. SKIN: Clean, dry, intact. No rash. DIAGNOSTIC STUDIES/LAB DATA: Laboratory data: White blood cell count 7.0, hemoglobin 14.0, hematocrit 40, platelet count 170. INR of 0.58, APTT 31.7. Sodium 140, potassium 3.6, chloride 106, carbon dioxide 26, anion gap of 8, BUN 15, creatinine 0.9, glucose 99, lactic acid 1.2, calcium 9.0. Bilirubin 0.3, AST 14, ALT 18, alkaline phosphatase 64. Troponin I of 0.00. Protein 6.6, albumin 4.2, globulin 2.4. Triglycerides 87, cholesterol 171, LDL cholesterol 88, HDL cholesterol 66. Urine benign toxicology, urine opiates presumptive positive and urine cannabinoids presumptive positive. Studies: Brain CT read as mild perineal sinus mucosal disease, otherwise negative CT of the brain. Chest x-ray from 02/23/18, read as no radiographic events for acute cardiopulmonary abnormality on portal chest x-ray. Head CTA from 02/23/18, read as normal head CTA. Repeat brain CT of 02/23/18, read as no acute intracranial abnormality. ASSESSMENT AND PLAN/IMPRESSION: Mr. Luciano is a 28-year-old male with past medical history significant only for possible heroin abuse, who presents to the emergency department with sudden onset weakness, paresthesias, and difficulty word findings, which are improving. The patient received tPA in the emergency department. He will be admitted to the ICU for post tPA protocol and further evaluation. 1. Cerebrovascular accident. The patient has residual neurologic deficits likely from ischemic stroke. The patient is seen in consultation by Dr. Kendrick of Neurology. The patient had 2 brain CTs both of which were negative. The patient received tPA without incident and no bleeding was evident. The patient has a negative CTA at this point. The patient will have a further evaluation with an MRI in 24 hours as well as a transthoracic echocardiogram. Given, the patient's possible history of IV drug abuse, which he denies, but is corroborated by his urine drug screen, the patient will have blood cultures drawn as well as a transthoracic echocardiogram to assess for patent foramen ovale or possible endocarditis. The patient had illness recently, which has been related to new bacteriemia or opiates withdrawal. The patient is currently normotensive. The patient requires no intervention of his blood pressure. The patient will be having bleeding precautions. The patient will need to pass dysphagia screening before he can have a diet. The patient will have neurologic checks. The patient will be monitored on telemetry to assess for atrial fibrillation or other arrhythmia and be anticoagulated if needed. The patient will be started on antiplatelet agents if deemed appropriate after 24 hours from his tPA administration. 2. Possible heroin abuse. The patient denies this; however, his urine drug screen was positive for opiates and he is not prescribed any legally. The patient will be monitored for opiate withdrawal and will have an assessment for endocarditis as above. 3. DVT prophylaxis. The patient will have SCDs in the setting of tPA therapy and a low risk. 4. Fluids, electrolytes, and nutrition. The patient will be n.p.o. as of now. The patient is to have a regular unrestricted diet when he passes dysphagia screening. The patient will not have fluids at this time unless he becomes hypotensive. 5. Code status. The patient would like to be a full code. The patient declined to elect a surrogate decision maker. 6. Disposition. The patient will be admitted to the ICU. TIME SPENT: Approximately, 60 minutes were spent on admission of this patient, 30 of which was spent [id number] with the patient obtaining history and physical and discussing treatment plan. This plan was discussed with my attending, Dr. Niki You, and she is in agreement. ROD CODY [id number]/[facility] #: [id number] LOGAN
[2018-02-24 04:27] LABS: ABS Basophils 0 10^3/ul (0-0.2); ABS Eosinophils 0.5 10^3/ul (0-0.6); ABS Lymphocytes 2.9 10^3/ul (1.0-4.8); ABS Monocytes 0.5 10^3/ul (0-0.8); ABS Neutrophils 4.2 10^3/ul (1.5-7.7); ABS Nucleated RBC 0 10^3/ul; Eosinophil % 5.7 % (0-6); Hematocrit 38 % (42-52); Hemoglobin 13.2 g/dl (14.0-18.0); Lymphocyte % 36.1 % (25-47); Mean Corpuscular HGB Conc 34 g/dl (31-36); Mean Corpuscular Hemoglobin 30 pg (27-31); Mean Corpuscular Volume 88 fL (80-94); Mean Platelet Volume 7.3 um3 (7.4-10.4); Nucleated Red Blood Cells % 0.1; Platelet Count 159 10^3/ul (150-450); Red Blood Count 4.36 10^6/ul (4.00-5.40); Red Cell Distribution Width 14 % (10.5-15); White Blood Count 8.1 10^3/ul (3.5-10.8)
[2018-02-24] MEDS ORDERED: NS 0.9% 1000 ML* 1,000 ML IV SCH (08:45)
--- NOTE | 2018-02-24 10:48 | PN ---
Subjective Date of Service: 02/24/18 Interval History: Patient seen at the bedside. He reports that he continues to have left mild numbness in upper and lower left extremities. He is able to ambulate and feel steady when he is up. He reports he can now grab with his left hand. No speech or swallowing difficulties. Denies ROBLES. No fever, chills, CP/SOB. Denies calf/ leg pain He reports 6 year hx of heroin use. He denies injecting stating he "hates needles" and has never injected. Per mom he OD last year. Objective Active Medications: Acetaminophen (Tylenol Tab*) 650 mg PO Q6H PRN PRN Reason: FEVER/PAIN Device (Nicotine Mouth Piece*) 1 each INH .USE WITH NICOTROL PRN PRN Reason: CRAVING Sodium Chloride (Ns 0.9% 1000 Ml*) 1,000 mls @ 150 mls/hr IV PER RATE JOSH Stop: 02/24/18 15:24 Last Admin: 02/24/18 09:37 Dose: 150 mls/hr Nicotine (Nicotine Inhaler*) 10 mg INH Q2H PRN PRN Reason: CRAVING Ondansetron HCl (Zofran Inj*) 4 mg IV Q6H PRN PRN Reason: NAUSEA Vital Signs - 8 hr 02/24/18 02/24/18 02/24/18 03:00 03:31 04:00 Temperature 98.5 F Pulse Rate 51 53 Respiratory 14 14 Rate Blood Pressure 105/65 95/58 (mmHg) O2 Sat by Pulse 97 97 Oximetry 02/24/18 02/24/18 02/24/18 05:00 06:00 07:00 Temperature Pulse Rate 54 83 65 Respiratory 14 14 14 Rate Blood Pressure 109/64 127/78 (mmHg) O2 Sat by Pulse 99 96 100 Oximetry 02/24/18 02/24/18 02/24/18 07:52 08:00 09:00 Temperature 98.9 F Pulse Rate 54 54 Respiratory 15 14 Rate Blood Pressure 104/69 109/63 (mmHg) O2 Sat by Pulse 97 96 Oximetry 02/24/18 10:00 Temperature Pulse Rate 61 Respiratory 13 Rate Blood Pressure 95/58 (mmHg) O2 Sat by Pulse 99 Oximetry Oxygen Devices in Use Now: None Appearance: A+O x3 28 yo male in NAD Eyes: No Scleral Icterus, PERRLA Ears/Nose/Mouth/Throat: NL Teeth, Lips, Gums, Mucous Membranes Moist Neck: NL Appearance and Movements; NL JVP Respiratory: Symmetrical Chest Expansion and Respiratory Effort, Clear to Auscultation Cardiovascular: NL Sounds; No Murmurs; No JVD, RRR, No Edema Abdominal: NL Sounds; No Tenderness; No Distention Lymphatic: No Cervical Adenopathy Extremities: No Edema, No Clubbing, Cyanosis Skin: No Rash or Ulcers, No Nodules or Sclerosis Neurological: Alert and Oriented x 3, NL Sensation, NL Muscle Strength and Tone , - - no pronator drift Lines/Tubes/Other Access: Clean, Dry and Intact Peripheral IV Nutrition: Taking PO's Result Diagrams: 02/24/18 04:20 02/24/18 04:20 Microbiology and Other Data: Microbiology 02/23/18 22:54 Nasal Screen MRSA (PCR) - Final Nasal Mrsa Detected Assess/Plan/Problems-Billing Assessment: 28 yo male with a PMH of heroin/opioid abuse who presented to the emergency room on 02/23 with speech difficulty with word finding, weakness, paresthesias and numbness on left side who received tPA with concern for stroke found to have an embolic CVA, now with gram positive blood cx. - Patient Problems (1) Ischemic cerebrovascular accident (CVA) Comment: - s/p tPA - MRI brain - nonhemorrhagic embolic infart with multiple inferior cerebellar bilateral subacute, small focus of restricted diffucion within the right thalamus, and within the posterior circulation distribution. - concern for endocarditis - blood cx growing gram staph -starting Vanco - plan for [facility] tuesday - Repeat CT Brain this evening - 24 hr tPA protocol - imaging pending - if no bleeding plan to start ASA/Plavix tonight - Head/Neck CTA - negative - neurology following - echo pending - LE dopplers pending - no noted afib on tele monitoring - neurology recommended possible loop recorder as outpt (2) Opioid abuse Comment: -heroin abuse - reports he uses a little everyday to prevent from getting dope sick - HIV pending - social work consult - monitor for withdrawal - supportive treatment (3) Nicotine abuse Comment: - nicotine replacement (4) DVT prophylaxis Comment: SCDs, ambulation (5) Full code status Status and Disposition: inpatient. Discharge disposition to be determined home vs rehab
--- NOTE | 2018-02-24 11:56 | RAD ---
HISTORY: CVA COMPARISONS: Head CT dated February 23, 2018 TECHNIQUE: The following sequences were obtained of the head: Sagittal T1-weighted images, axial T2-weighted images, axial FLAIR images, axial susceptibility weighted images, axial T1-weighted images. Additionally, axial diffusion-weighted images were obtained with calculated apparent diffusion coefficients. FINDINGS: HEMORRHAGE/INFARCT: There are multiple foci of restricted diffusion within the inferior cerebral hemispheres bilaterally, consistent with subacute nonhemorrhagic infarct. Elsewhere, there is no hemorrhage or acute infarct.. MASSES/SHIFT: There is no mass or shift. EXTRA-AXIAL SPACES/MENINGES: There are no extra-axial fluid collections. SULCI AND VENTRICLES: The sulci and ventricles are normal in size and position for the patient's stated age. CEREBRUM: There are no focal parenchymal abnormalities. BRAINSTEM: There are no focal parenchymal abnormalities. CEREBELLUM: There is elevated T2/flair signal corresponding to the areas of acute diffusion noted on MRI. The cerebellar tonsils are normal in size and position. SELLA: The sella is normal. PINEAL: The pineal region is clear. CP ANGLE/TEMPORAL BONES: The labyrinthine structures are grossly normal. VESSELS: Normal flow-voids are noted within the visualized vertebral vasculature. DIFFUSION ABNORMALITIES: As noted above, there are multiple punctate foci of restricted diffusion within the inferior cerebellar hemispheres bilaterally. PARANASAL SINUSES/MASTOIDS: There is mucosal thickening of ethmoid air cells and frontal sinuses bilaterally and sphenoid sinus and maxillary sinuses bilaterally. ORBITS: The orbits are unremarkable. BONES AND SOFT TISSUE: No bone or soft tissue abnormalities are noted. OTHER: None IMPRESSION: MULTIPLE PUNCTATE FOCI OF RESTRICTED DIFFUSION WITHIN THE INFERIOR CEREBELLAR HEMISPHERES BILATERALLY CONSISTENT WITH SUBACUTE NONHEMORRHAGIC INFARCT.
[2018-02-24] MEDS: Nicotine Inhaler* 10 MG AMP INH PRN ×2 (11:57→17:47)
--- NOTE | 2018-02-24 16:24 | ECHO ---
Patient: DEVIN YANEZ [facility] Rec#: [id number] : 1990 Date: 02/24/2018 Age: 28y Height: 180 cm / 70.9 in Weight: 77.1 kg / 169.9 lbs Sex: M BSA: 2 Room#: ICU 7 Admit Date#: 02/23/2018 Type: Inpatient Referring: Jono Mccain Reading: Hakan Guaman MD Stack Yield Engineer: Maria Elena Ramesh RN RDCS Transthoracic Echocardiogram Indication: CVA S/P tPA BP: 127/78 HR: 55 Rhythm: Bradycardia Findings History: Heroin and opioid use, smoker Technical Comments: The study quality is fair. The study is technically limited due to the patient's smoking history. Left Ventricle: The left ventricular chamber size is normal. Global left ventricular wall motion and contractility are within normal limits. There is normal left ventricular systolic function. The estimated ejection fraction is 55-60%. Normal left ventricular diastolic filling is observed. Left Atrium: The left atrial chamber size is normal. Right Ventricle: The right ventricular chamber size and systolic function are within normal limits. Right Atrium: The right atrial cavity size is normal.There were late bubbles seen in the left ventricle. Unable to definitively exlude patent foramen ovale. Aortic Valve: The aortic valve is trileaflet. There is no evidence of aortic regurgitation. There is no evidence of aortic stenosis. Mitral Valve: The mitral valve leaflets are mildly thickened. There is a trace of mitral regurgitation. Tricuspid Valve: The tricuspid valve leaflets are normal. There is trace to mild tricuspid regurgitation. Unable to estimate the right ventricular systolic pressure. Pulmonic Valve: The pulmonic valve appears normal. There is no evidence of pulmonic regurgitation. There is no pulmonic stenosis. Pericardium: There is no significant pericardial effusion. Aorta: There is no dilatation of the ascending aorta. There is no dilatation of the aortic arch. There is no dilation of the aortic root. Pulmonary Artery: The main pulmonary artery appears normal. Venous: The inferior vena cava appears normal in size. There is an approximate 50% respiratory change in the inferior vena cava dimension. Contrast: Normal saline was used as contrast for the bubble study. Image 8 and last 2 images. Conclusions There is normal left ventricular systolic function. The estimated ejection fraction is 55-60%. Global left ventricular wall motion and contractility are within normal limits. Normal cardiac chamber sizes. Functionally benign heart valves. There were late bubbles seen crossing into the left ventricle after agitated saline infusion so unable to definitively exlude patent foramen ovale. If clinical concern remains, consider transesophageal echocardiogram to further evaluate for intra-cardiac shunting. There is no prior echocardiogram available to compare with at this time. Measurements Name Value Normal Range RVDdMajor (2D) 3.3 cm (2.2 - 4.4) RAd ISD 4CH 4.7 cm (3.4 - 4.9) RA (A4C)W 3.7 cm (2.9 - 4.6) IVSd (2D) 1 cm (0.6 - 1) LVPWd (2D) 1 cm (0.6 - 1) LVIDd (2D) 4.4 cm (3.6 - 5.4) LVIDs (2D) 3.4 cm - LV FS (2D) 23 % (25 - 45) Aortic Annulus 2.4 cm (1.4 - 2.6) Ao root diameter (2D) 3.2 cm (2.1 - 3.5) Ascending Ao 2.5 cm (2.1 - 3.4) Aortic arch 2.7 cm (1.8 - 3.4) LA dimension (AP) 2D 3.3 cm (2.3 - 3.8) LAd ISD 4CH 4.7 cm (2.9 - 5.3) LA ISD 4CH W 4.3 cm (2.5 - 4.5) Name Value Normal Range LA ESV BP (A/L) index 32.7 ml/m2 - Name Value Normal Range MV E-wave Vmax 0.82 m/sec - MV deceleration time 289 msec - MV A-wave Vmax 0.46 m/sec - MV E:A ratio 1.8 ratio - LV septal e' Vmax 0.14 m/sec - LV lateral e' Vmax 0.17 m/sec - LV E:e' septal ratio 5.9 ratio - LV E:e' lateral ratio 4.8 ratio - Name Value Normal Range AV Vmax 1.4 m/sec - AV VTI 29.1 cm - AV peak gradient 7 mmHg - AV mean gradient 3 mmHg - LVOT Vmax 1.1 m/sec - LVOT VTI 22.5 cm - LVOT peak gradient 5 mmHg - LVOT mean gradient 2 mmHg - YANET Vmax 0.9 m/sec - Name Value Normal Range IVC diameter 2.1 cm - Name Value Normal Range PV Vmax 0.7 m/sec -
[2018-02-24] MEDS ORDERED: Vancomycin per Pharmacy* NOTE FOLLOW UP SCH (18:00)
[2018-02-24] MEDS ORDERED: Vancomycin(*) 1,500 MG in NS 0.9% 250 ML* 250 ML IVPB ONE (18:30)
--- NOTE | 2018-02-24 19:04 | RAD ---
INDICATION: The patient is status post TPA administration the previous day with multifocal infarcts identified on MRI of the brain COMPARISON: Same day MRI of the brain showing multifocal infarcts in the cerebellum TECHNIQUE: Contiguous axial sections of the brain were obtained from the skull base to the vertex without contrast. FINDINGS: The ventricles, cisterns and sulci are within normal limits. The montague-white matter differentiation is adequately maintained and there is no sulcal effacement. No significant focal abnormality or mass effect is present. There is no evidence for intracranial hemorrhage. No significant focal osseous abnormality is present. Again noted is bilateral mucosal thickening of the ethmoid air cells. The mastoid air cells are well aerated bilaterally. IMPRESSION: 1. No CT evidence of focal or territorial infarction corresponding to findings from the same day MRI of the brain. 2. Bilateral ethmoid air cell sinusitis.
--- NOTE | 2018-02-24 19:19 | RAD ---
EXAM: US Duplex Bilateral Lower Extremity Veins CLINICAL HISTORY: 28 years old, male; Condition or disease; Other: CVA TECHNIQUE: Real-time duplex ultrasound scan of the bilateral lower extremity veins integrating B-mode two-dimensional vascular structure, Doppler spectral analysis, color flow Doppler imaging and compression. COMPARISON: No relevant prior studies available. FINDINGS: Right deep veins: Unremarkable. No DVT in the right common femoral, femoral, proximal deep femoral or popliteal veins. The veins demonstrate normal color flow, are normally compressible, with normal phasic flow and/or augmentation response. Right superficial veins: Unremarkable. No thrombus in the visualized right great saphenous vein. Left deep veins: Unremarkable. No DVT in the left common femoral, femoral, proximal deep femoral or popliteal veins. The veins demonstrate normal color flow, are normally compressible, with normal phasic flow and/or augmentation response. Left superficial veins: Unremarkable. No thrombus in the visualized left great saphenous vein. Soft tissues: No acute findings. No popliteal cyst. IMPRESSION: Normal bilateral lower extremity duplex venous ultrasound. To contact [facility] with a general question: [facility] - [phone] For direct physician to physician contact: Physician Hotline - [phone] [facility] ([facility] Facility ID #[id number])
[2018-02-24] MEDS ORDERED: Clopidogrel TAB* 75 MG PO ONE (19:40)
[2018-02-24] MEDS ORDERED: Aspirin EC TAB* 81 MG TAB.EC PO ONE (19:45)
[2018-02-25] MEDS: Vancomycin(*) 1,250 MG in NS 0.9% 250 ML* 250 ML IVPB SCH ×3 (01:50→18:28)
--- NOTE | 2018-02-25 04:32 | PN ---
PROGRESS NOTE: DATE OF SERVICE: 02/24/2018. PATIENT OF: hSante Hutson NP HISTORY: This is a neurological followup of this 28-year-old man, who is status post tPA for stroke. He still notes that he has tingling and numbness in his left arm, leg, and face, but his strength and coordination are better. He is within a 24-hour window for tPA so he is not on any blood thinners at this point. MEDICATIONS: He is on a nicotine inhaler; this is the only medication. PHYSICAL EXAMINATION: Temperature 98.5, pulse 70, respirations 17, blood pressure 120/71. He is alert and oriented with normal speech and comprehension. Cranial nerves II through XII are intact. He had decreased sensation subjectively to light touch, face, arm, and leg. He had no pronator drift today as opposed to yesterday, he had perhaps minimal left [id number] dysmetria; it is unclear but there is just normal [id number] variation. There are no other symptoms at this point. Strength was 5/5. Chest: Clear. Cardiovascular: Regular rate and rhythm. Abdomen: Soft with positive bowel sounds. He notes that he takes heroin likely but does not do amphetamines and no other drugs other than marijuana. DIAGNOSTIC STUDIES/LAB DATA: His MRI scan was reviewed, it was done today, it showed several small strokes in both cerebellar hemispheres and there is also one in his right thalamus. I discussed this with Dr. Irwin. He agrees that this is further stroke and will take other stroke. His CTA head and neck was negative. He has had no arrhythmia today. He just had his echo. Labs include normal CBC, INR, PTT, CMP. LDL was 88 yesterday. Urology: He has positive opiates in his urine and positive marijuana. IMPRESSION AND PLAN: Delvis has multiple acute or subacute strokes presumably happening yesterday causing initially abnormalities in his left pronator drift and sensation with his pronator drift now normal. Mr. Luciano notes that he does not IV drug abuse. It is unclear the etiology of his stroke, the issues could be either basilar to downstream emboli or cardiac embolic event. It will be important to try to differentiate the two since the treatment would be potentially different. There have been anecdotal reports of heroin associated with stroke, some possibly related to IV drug abuse and bacterial endocarditis, this may not be the case in his situation. His echo is pending and he will need a TE echo. For now once his CT scan is negative, we will put him on aspirin for bleed 24 hours after his stroke and his tPA. We will put him on aspirin and Plavix through the weekend and then get a TE echo unless this echo shows a clear abnormality. The other part of the workup would include a hypercoagulable workup and also fasting lipid profile. Shante Hutson NP, will send once blood draws are allowed. With his normal CTA not showing any atherosclerotic disease or clear vasculitis and with the pattern on his MRI scan, I would wonder whether this is cardioembolic and we will see what his echo show and then Dr. Feldman will evaluate the information and make a decision whether to anticoagulate after his cardiac workup. Probably, we will also have several days more of in-house monitoring but if no etiology is found, I would recommend getting a loop recorder to follow. I discussed this in detail with Shante Hutson NP, and with the patient and showed the films to the family. Thank you for sharing his case. Dr. Feldman will spanish moss picker his case after 5 tonight. [id number]/[facility] #: [id number] ELLIS HOSPITALGiuliano
[2018-02-25 06:30] LABS: ABS Basophils 0.1 10^3/ul (0-0.2); ABS Eosinophils 0.1 10^3/ul (0-0.6); ABS Lymphocytes 1.7 10^3/ul (1.0-4.8); ABS Monocytes 0.4 10^3/ul (0-0.8); ABS Nucleated RBC 0 10^3/ul; Eosinophil % 1.1 % (0-6); Hematocrit 41 % (42-52); Hemoglobin 14.3 g/dl (14.0-18.0); Lymphocyte % 20.3 % (25-47); Mean Corpuscular HGB Conc 35 g/dl (31-36); Mean Corpuscular Hemoglobin 31 pg (27-31); Mean Corpuscular Volume 87 fL (80-94); Mean Platelet Volume 7.6 um3 (7.4-10.4); Nucleated Red Blood Cells % 0.1; Platelet Count 173 10^3/ul (150-450); Red Blood Count 4.69 10^6/ul (4.00-5.40); Red Cell Distribution Width 14 % (10.5-15); White Blood Count 8.3 10^3/ul (3.5-10.8)
[2018-02-25] MEDS: Aspirin EC TAB* 81 MG TAB.EC PO SCH (09:34)
[2018-02-25] MEDS: Clopidogrel TAB* 75 MG PO SCH (09:34)
--- NOTE | 2018-02-25 09:40 | PN ---
Subjective Date of Service: 02/25/18 Interval History: Patient reports his left sided weakness which is mild is still present and is the same as yesterday. Denies ROBLES. No fever or chills. No CP/SOB. Reports he feels he is withdrawing a little with "sweats, no appetite and feel terrible". No N/V/D. He reports usually he has more sever symptoms being this far out from using. He again denies needle use and states he has a severe fear of needles. Per nursing staff to draw blood his girlfriend had to soothe him Objective Active Medications: Acetaminophen (Tylenol Tab*) 650 mg PO Q6H PRN PRN Reason: FEVER/PAIN Aspirin (Aspirin Ec Tab*) 81 mg PO DAILY [facility] Last Admin: 02/25/18 09:34 Dose: 81 mg Clopidogrel Bisulfate (Plavix Tab*) 75 mg PO DAILY [facility] Last Admin: 02/25/18 09:34 Dose: 75 mg Device (Nicotine Mouth Piece*) 1 each INH .USE WITH NICOTROL PRN PRN Reason: CRAVING Last Admin: 02/24/18 11:56 Dose: 1 each Vancomycin HCl 1,250 mg/ (Sodium Chloride) 250 mls @ 166.667 mls/hr IVPB Q8H [facility] [place] Last Admin: 02/25/18 01:50 Dose: 166.667 mls/hr Ceftriaxone Sodium 2 gm/ (Sodium Chloride) 100 mls @ 200 mls/hr IVPB Q24H [facility] [place] Nicotine (Nicotine Inhaler*) 10 mg INH Q2H PRN PRN Reason: CRAVING Last Admin: 02/24/18 17:47 Dose: 10 mg Ondansetron HCl (Zofran Inj*) 4 mg IV Q6H PRN PRN Reason: NAUSEA Pharmacy Consult (Vancomycin Per Pharmacy*) 1 note FOLLOW UP .VANC PER PHARMACY [facility] Pharmacy Profile Note (Vancomycin Trough Check) 1 note FOLLOW UP 1800 ONE Stop: 02/25/18 18:01 Vital Signs - 8 hr 02/25/18 02/25/18 02/25/18 01:57 02:00 03:00 Temperature Pulse Rate 58 74 61 Respiratory 17 17 16 Rate Blood Pressure 102/66 127/61 127/66 (mmHg) O2 Sat by Pulse 97 97 98 Oximetry 02/25/18 02/25/18 02/25/18 04:00 04:01 05:00 Temperature Pulse Rate 62 71 67 Respiratory 21 25 16 Rate Blood Pressure 120/81 117/75 (mmHg) O2 Sat by Pulse 97 96 98 Oximetry 02/25/18 02/25/18 02/25/18 06:00 06:01 07:00 Temperature Pulse Rate 107 69 56 Respiratory 14 14 17 Rate Blood Pressure 113/75 (mmHg) O2 Sat by Pulse 100 100 97 Oximetry 02/25/18 02/25/18 02/25/18 07:01 07:54 08:00 Temperature 96.9 F Pulse Rate 59 65 Respiratory 20 18 Rate Blood Pressure 120/69 (mmHg) O2 Sat by Pulse 96 97 Oximetry 02/25/18 02/25/18 02/25/18 08:01 09:00 09:01 Temperature Pulse Rate 77 71 68 Respiratory 26 26 Rate Blood Pressure 132/73 141/66 (mmHg) O2 Sat by Pulse 99 97 97 Oximetry Oxygen Devices in Use Now: None Appearance: A+O x3 in NAD Eyes: No Scleral Icterus, PERRLA Ears/Nose/Mouth/Throat: NL Teeth, Lips, Gums, Mucous Membranes Moist Neck: NL Appearance and Movements; NL JVP Respiratory: Symmetrical Chest Expansion and Respiratory Effort, Clear to Auscultation Cardiovascular: NL Sounds; No Murmurs; No JVD, RRR, No Edema Abdominal: NL Sounds; No Tenderness; No Distention Extremities: No Edema, No Clubbing, Cyanosis Skin: No Rash or Ulcers, No Nodules or Sclerosis, - - no note dtrack juarez Neurological: Alert and Oriented x 3, NL Sensation, NL Muscle Strength and Tone Lines/Tubes/Other Access: Clean, Dry and Intact Peripheral IV Nutrition: Taking PO's Result Diagrams: 02/25/18 06:10 02/25/18 11:35 Microbiology and Other Data: Microbiology 02/23/18 22:54 Nasal Screen MRSA (PCR) - Final Nasal Mrsa Detected Assess/Plan/Problems-Billing Assessment: 28 yo male with a PMH of heroin/opioid abuse who presented to the emergency room on 02/23 with speech difficulty with word finding, weakness, paresthesias and numbness on left side who received tPA with concern for stroke found to have an embolic CVA, now with gram positive blood cx. - Patient Problems (1) Ischemic cerebrovascular accident (CVA) Comment: - s/p tPA on 02/23 - MRI brain - nonhemorrhagic embolic infart with multiple inferior cerebellar bilateral subacute, small focus of restricted diffucion within the right thalamus, and within the posterior circulation distribution. - concern for endocarditis - blood cx growing gram positive cocci - pcr negative for MSSA/MRSA -Vanco - plan for [facility] tuesday and ID consult - Repeat CT Brain - 24 hr s/p tPA protocol - negative for bleed - started ASA/Plavix evening 02/24 - continue daily - depending on [facility] may require anticoagulation - Head/Neck CTA - negative - neurology following - recommends hypercoagulable work-up - echo normal - there were late bubbles seen crossing the left ventricle but nondiagnostic of PFO - plan for [facility] tuesday - LE dopplers negative for DVT - Lipid profile wnls - no noted afib on tele monitoring - neurology recommended loop recorder as outpt (2) Opioid abuse Comment: -heroin abuse - reports he uses a little everyday to prevent from getting dope sick - is adament he does not use needles and has a severe fear of needles. He is not interetsed in inpatient rehab or suboxone - but is maybe interested in counseling. He does have an intrest to quit. - HIV pending - social work consult - monitor for withdrawal - mild signs of detoxing today with diaphoresis, no appetite- supportive treatment - continue NS IVFs (3) Nicotine abuse Comment: - nicotine replacement (4) DVT prophylaxis Comment: SCDs, ambulation (5) Full code status Status and Disposition: inpatient. Discharge when medically stable. Social work following
[2018-02-25] MEDS: cefTRIAXone(*) 2 GM in NS 0.9% 100 ML* 100 ML IVPB SCH ×2 (10:55→11:03)
[2018-02-25 12:04] LABS: EGFR Non-African American 134.3 (>60)
[2018-02-25] MEDS ORDERED: Potassium Chlor TAB* 20 MEQ TAB.ER PO ONE (12:23)
[2018-02-25] MEDS: NS 0.9% 1000 ML* 1,000 ML IV SCH (13:03)
[2018-02-25] MEDS ORDERED: Vancomycin Trough Check NOTE FOLLOW UP ONE (18:00)
[2018-02-25] MEDS ORDERED: Nicotine PATCH 21 MG/24 HR* PATCH ONE (18:07)
[2018-02-25] MEDS: Nicotine PATCH 21 MG/24 HR* PATCH TRANSDERM SCH (18:10)
[2018-02-25] MEDS: Ondansetron INJ* 2 MG/ML VIAL IV PRN (18:32)
--- NOTE | 2018-02-25 22:53 | PN ---
PROGRESS NOTE: DATE OF VISIT: 02/25/18 CURRENT LOCATION: ICU 7, bed 1. HOSPITALIST: Shante Hutson NP SUBJECTIVE: Overnight, the patient has had no new issues. He is a 28-year-old gentleman who is status post TPA for posterior circulation stroke. He presented with numbness and tingling in his left arm, leg, and face as well as some weakness on that side. He did receive TPA and was transferred to the ICU, subsequently had a CT scan yesterday which was negative for any bleeding. His initial MRI of the brain showed multiple punctate foci of restricted diffusion within the inferior cerebellar hemispheres bilaterally consistent with subacute nonhemorrhagic infarct. His transthoracic echocardiogram showed ejection fraction of 55% to 60%, normal left ventricular systolic function. Global left ventricular wall motion and contractility are within normal limits. Normal cardiac chamber size, functionally benign heart valves. There were late bubbles seen crossing in the left ventricle after agitated saline, unable to definitively exclude patent foramen ovale. Transesophageal echocardiogram recommended. He did have a CT angiogram of the head, which showed no large vessel disease. CT angiogram of the neck was normal as well. He feels about the same although he notes that his numbness and tingling is better. Overnight , he had no new issues. He is frustrated about having to stay but understands why. Overnight he had positive blood cultures, that are MRSA- negative Staph aureus, and low-grade fevers in the 99 range. He denies any new focal neurologic signs or symptoms overnight. OBJECTIVE: Vital Signs: T-max 100.5, blood pressure 141/66, heart rate of 66, respiratory rate of 26, pulse ox of 97. General: He is a well-nourished, well - developed gentleman sitting in his hospital bed. He is sleeping but awakens easily. His girlfriend is at the bedside. HEENT: Normocephalic, atraumatic. Sclerae are anicteric. Mucus membranes are moist. Oropharynx is clear. Nares are patent. Neck is supple. No carotid bruits. Chest: Clear to auscultation bilaterally. Cardiovascular is regular rate and rhythm. Abdomen is nontender. Extremities: No clubbing, cyanosis, or edema. Skin is warm. On neurologic exam, he is awake, alert, and oriented x3. His affect is flat. Speech is fluent. He has no dysarthria. Recall is intact. Cranial Nerves: Pupils are equal, round and reactive to light. Extraocular muscles are intact with no diplopia. No ptosis is noted. Visual ibanez are full. Face is symmetric. He has some mildly decreased facial sensation on the left. There is no droop. Hearing is intact. Tongue is midline. Palate raises symmetrically. Motor exam is 5/5 throughout. There is no drift. DTRs are 2+ in the upper extremities, 3+ at the patella, 2+ at the ankles. Equivocal Babinski's. Sensation: He has 10% loss of light touch pinprick on the left arm and leg. No tremors noted on examination. [id number] is intact. Gait was not tested. LABORATORY DATA: Lab work includes CBC with diff significant for a hematocrit of 41, lymphocyte percent of 20.3. Basic metabolic profile, carbon dioxide of 14, creatinine of 0.41, calcium of 5.6. Triglycerides 78, cholesterol 120, LDL 62, HDL 42.1. Urine negative. Utox positive for opiates and cannabinoids. The patient denies any intravenous drug use. IMAGING: As noted above. MRI with multiple punctate small strokes in the posterior cerebral artery distribution. Brain CT overnight shows no evidence of hemorrhage. A venous Doppler of the lower extremities showed no evidence of a DVT. ASSESSMENT AND PLAN: Mr. Luciano is a 28-year-old gentleman with a known history of drug use although he adamantly denies any intravenous drug use, presented to the hospital on 02/23/18 with acute onset of tingling and numbness in his left arm, face, and leg and some weakness and incoordination. He received TPA and over the next day has improved 24 hours status post TPA. His CT of the head was negative. He has subsequently been started on aspirin and Plavix. Hospital course is complicated by blood cultures for Staph aureus non- MRSA. Echocardiogram showed the possibility of a patent foramen ovale. Concern for possible endocarditis; he was scheduled for ELMA on Tuesday. Plan at this point continue his current stroke post TPA management including aspirin and Plavix, with I would not be aggressive with blood pressure at this point, I am okay with blood pressures in the 140s/80s. He is now on antibiotics for presumed endocarditis, ELMA is scheduled for Tuesday. I had a long discussion with the patient about his drug use. He again adamantly denies any intravenous drug use. He does note that his mom had a stroke in her 50s, nonsmoker, and there is no history of blood clots, no history of bleeding disorders or easy bruising that the patient is aware of. Hypercoagulable panel is pending. The plan is to monitor him closely until Tuesday. I will continue to follow along and make further recommendations if necessary. [id number]/[facility] #: [id number] LOGAN
[2018-02-26] MEDS: NS 0.9% 1000 ML* 1,000 ML IV SCH (00:14)
[2018-02-26] MEDS: Vancomycin(*) 1,250 MG in NS 0.9% 250 ML* 250 ML IVPB SCH ×4 (00:14→18:12)
[2018-02-26] MEDS: Ondansetron INJ* 2 MG/ML VIAL IV PRN ×2 (01:43→13:47)
[2018-02-26 05:50] LABS: EGFR Non-African American 141.2 (>60)
[2018-02-26] MEDS ORDERED: NS 0.9% w/ 40 Meq KCL 1000 ML* 1,000 ML IV SCH (07:00)
[2018-02-26] MEDS ORDERED: Potassium Chlor TAB* 20 MEQ TAB.ER PO ONE (08:50)
[2018-02-26] MEDS ORDERED: Magnesium Sulfate 2 GM IV* 2 GM/50 ML BAG IVPB ONE (08:51)
[2018-02-26] MEDS: Clopidogrel TAB* 75 MG PO SCH (09:20)
[2018-02-26] MEDS: Aspirin EC TAB* 81 MG TAB.EC PO SCH (09:20)
[2018-02-26] MEDS: Nicotine PATCH 21 MG/24 HR* PATCH TRANSDERM SCH (09:20)
--- NOTE | 2018-02-26 09:47 | PN ---
Subjective Date of Service: 02/26/18 Interval History: MS. Luciano reports feeling well this morning. His girlfriend is at the bedside. He continues to have withdrawal symptoms including nausea, diarrhea, and anxiety. He is interested in starting suboxone or other medication for withdrawal. He continues to c/o left sided weakness, numbness, and tingling. He denies nicotine cravings, though did go outside to smoke overnight per nursing staff. He is wearing a nicotine patch which he feels is managing his symptoms. Family History: Unchanged from Admission Social History: Unchanged from Admission Past Medical History: Unchanged from Admission Objective Active Medications: Acetaminophen (Tylenol Tab*) 650 mg PO Q6H PRN Aspirin (Aspirin Ec Tab*) 81 mg PO DAILY [facility] Clopidogrel Bisulfate (Plavix Tab*) 75 mg PO DAILY [facility] Device (Nicotine Mouth Piece*) 1 each INH .USE WITH NICOTROL PRN Sodium Chloride (Ns 0.9% 1000 Ml*) 1,000 mls @ 125 mls/hr IV PER RATE [facility] Vancomycin HCl 1,250 mg/ (Sodium Chloride) 250 mls @ 166.667 mls/hr IVPB Q6HR [facility] Magnesium Sulfate (Magnesium Sulfate 2 Gm Iv*) 2 gm in 50 mls @ 50 mls/hr IVPB ONCE ONE Potassium Chloride/Sodium Chloride (Ns 0.9% W/ 20 Meq Kcl 1000 Ml*) 1,000 mls @ 150 mls/hr IV PER RATE [facility] Nicotine (Nicotine Inhaler*) 10 mg INH Q2H PRN Nicotine (Nicotine Patch 21 Mg/24 Hr*) 1 patch TRANSDERM DAILY [facility] Ondansetron HCl (Zofran Inj*) 4 mg IV Q6H PRN Pharmacy Consult (Vancomycin Per Pharmacy*) 1 note FOLLOW UP .VANC PER PHARMACY [facility] Pharmacy Profile Note (Nicotine Patch Removal Note*) 1 note FOLLOW UP 0600 [facility] Pharmacy Profile Note (Vancomycin Trough Check) 1 note FOLLOW UP 0530 [facility] Vital Signs - 8 hr 02/26/18 02/26/18 03:38 08:00 Temperature 98.9 F 99.5 F Pulse Rate 68 57 Respiratory 20 20 Rate Blood Pressure 111/52 112/58 (mmHg) O2 Sat by Pulse 100 99 Oximetry Oxygen Devices in Use Now: None Appearance: Young adult male sitting in bed in no acute distress Eyes: No Scleral Icterus, PERRLA Ears/Nose/Mouth/Throat: NL Teeth, Lips, Gums, Mucous Membranes Moist Neck: NL Appearance and Movements; NL JVP, Trachea Midline Respiratory: Symmetrical Chest Expansion and Respiratory Effort, Clear to Auscultation Cardiovascular: NL Sounds; No Murmurs; No JVD, RRR, No Edema Abdominal: NL Sounds; No Tenderness; No Distention, No Hepatosplenomegaly Extremities: No Edema Skin: No Rash or Ulcers Neurological: Alert and Oriented x 3, NL Gait, NL Muscle Strength and Tone Lines/Tubes/Other Access: Clean, Dry and Intact Peripheral IV Nutrition: Taking PO's Result Diagrams: 02/25/18 06:10 02/26/18 05:16 Assess/Plan/Problems-Billing Assessment: 28 yo male with a PMH of heroin/opioid abuse who presented to the emergency room on 02/23 with speech difficulty with word finding, weakness, paresthesias and numbness on left side who received tPA with concern for stroke found to have an embolic CVA, now with gram positive blood cx and concern for endocarditis. - Patient Problems (1) Ischemic cerebrovascular accident (CVA) Current Visit: Yes Status: Acute Code(s): I63.9 - CEREBRAL INFARCTION, UNSPECIFIED SNOMED Code(s): 368312409 Comment: - S/p tPA on 02/23 - MRI brain shows nonhemorrhagic embolic infart with multiple inferior cerebellar bilateral subacute, small focus of restricted diffucion within the right thalamus, and within the posterior circulation distribution - Repeat CT Brain - 24 hr s/p tPA protocol - negative for bleed - Started ASA/Plavix evening 02/24 - continue daily; depending on ELMA may require anticoagulation - Head/Neck CTA negative, LE doppler negative for DVT, lipid WNL - Neurology following - Hypercoagulable workup pending - Echo shows late bubbles seen crossing the left ventricle but nondiagnostic of PFO - plan for ELMA tuesday - No noted afib on tele monitoring, neurology recommended loop recorder as outpt (2) Positive blood culture Current Visit: Yes Status: Acute Code(s): R78.81 - BACTEREMIA SNOMED Code( s): 250365359 Comment: - Concern for endocarditis, blood cx growing staph epidermidis, PCR negative for MSSA/MRSA - Continue vanco - ELMA tuesday - ID consult appreciated (3) Opioid abuse Current Visit: Yes Status: Acute Priority: High Code(s): F11.10 - OPIOID ABUSE, UNCOMPLICATED SNOMED Code(s): 0702374 Comment: - Heroin abuse, reports he uses a little everyday to prevent from getting dope sick - is adament he does not use needles and has a severe fear of needles - HIV negative - Social work consult - Start suboxone - Spoke with TOD Hannah who will see the pt tomorrow to discuss outpt treatment (4) Nicotine abuse Current Visit: Yes Status: Acute Code(s): Z72.0 - TOBACCO USE SNOMED Code( s): 003751889 Comment: - Nicotine replacement (5) Full code status Current Visit: Yes Status: Acute Priority: High Code(s): Z78.9 - OTHER SPECIFIED HEALTH STATUS SNOMED Code(s): 512646543 (6) DVT prophylaxis Current Visit: Yes Status: Acute Priority: High Code(s): HNB2688 - SNOMED Code(s): 408509352 Comment: - SCDs and ambulation Status and Disposition: Inpatient. Discharge when medically stable. Social work following.
[2018-02-26] MEDS: Nicotine Patch Removal NOTE FOLLOW UP SCH (10:06)
[2018-02-26] MEDS: NS 0.9% w/ 20 Meq KCL 1000 ML* 1,000 ML IV SCH ×2 (10:44→19:11)
--- NOTE | 2018-02-26 11:09 | PN ---
Subjective Date of Service: 02/26/18 - Neurology follow up Length of Stay: 3 Days Interval History: New new focal neurologic symptoms. He notes continue numbness and tingling in the left face/arm/leg. Most pressing is the fact that he is likely withdrawing from Heroin. He last used , 4 days ago. He now has nausea/vomiting, diarrhea, some tachycardia. He went down to smoke yesterday but denied drug use. Family History: Unchanged from Admission Social History: Unchanged from Admission Past Medical History: Unchanged from Admission Objective Active Medications: Acetaminophen (Tylenol Tab*) 650 mg PO Q6H PRN PRN Reason: FEVER/PAIN Aspirin (Aspirin Ec Tab*) 81 mg PO DAILY [facility] Last Admin: 02/26/18 09:20 Dose: 81 mg Clopidogrel Bisulfate (Plavix Tab*) 75 mg PO DAILY [facility] Last Admin: 02/26/18 09:20 Dose: 75 mg Device (Nicotine Mouth Piece*) 1 each INH .USE WITH NICOTROL PRN PRN Reason: CRAVING Last Admin: 02/24/18 11:56 Dose: 1 each Sodium Chloride (Ns 0.9% 1000 Ml*) 1,000 mls @ 125 mls/hr IV PER RATE [facility] Stop: 02/26/18 19:14 Last Admin: 02/26/18 00:14 Dose: 125 mls/hr Vancomycin HCl 1,250 mg/ (Sodium Chloride) 250 mls @ 166.667 mls/hr IVPB Q6HR [facility] Last Admin: 02/26/18 06:04 Dose: 166.667 mls/hr Potassium Chloride/Sodium Chloride (Ns 0.9% W/ 20 Meq Kcl 1000 Ml*) 1,000 mls @ 150 mls/hr IV PER RATE [facility] Stop: 02/27/18 16:39 Last Admin: 02/26/18 10:44 Dose: 150 mls/hr Nicotine (Nicotine Inhaler*) 10 mg INH Q2H PRN PRN Reason: CRAVING Last Admin: 02/24/18 17:47 Dose: 10 mg Nicotine (Nicotine Patch 21 Mg/24 Hr*) 1 patch TRANSDERM DAILY [facility] Last Admin: 02/26/18 09:20 Dose: 1 patch Ondansetron HCl (Zofran Inj*) 4 mg IV Q6H PRN PRN Reason: NAUSEA Last Admin: 02/26/18 01:43 Dose: 4 mg Pharmacy Consult (Vancomycin Per Pharmacy*) 1 note FOLLOW UP .VANC PER PHARMACY [facility] Pharmacy Profile Note (Nicotine Patch Removal Note*) 1 note FOLLOW UP 06 [facility] Last Admin: 02/26/18 10:06 Dose: Not Given Pharmacy Profile Note (Vancomycin Trough Check) 1 note FOLLOW UP 0530 [facility] Stop: 02/27/18 05:31 Vital Signs 02/25/18 02/25/18 02/25/18 12:00 12:03 12:07 Temperature 99.2 F Pulse Rate 95 75 Respiratory 17 21 Rate Blood Pressure 112/66 (mmHg) O2 Sat by Pulse 98 98 Oximetry 02/25/18 02/25/18 02/25/18 12:08 13:00 14:00 Temperature Pulse Rate 83 81 Respiratory 17 20 23 Rate Blood Pressure 113/69 110/64 (mmHg) O2 Sat by Pulse 98 98 Oximetry 02/25/18 02/25/18 02/25/18 15:00 15:25 16:01 Temperature 98.0 F 98 F Pulse Rate 84 87 Respiratory 29 18 18 Rate Blood Pressure 124/67 124/67 (mmHg) O2 Sat by Pulse 98 98 Oximetry 02/25/18 02/25/18 02/25/18 19:58 20:00 20:57 Temperature 98.9 F Pulse Rate 80 103 Respiratory 16 16 Rate Blood Pressure 101/86 149/75 (mmHg) O2 Sat by Pulse 98 98 98 Oximetry 02/25/18 02/26/18 02/26/18 23:40 03:38 08:00 Temperature 98.7 F 98.9 F 99.5 F Pulse Rate 83 68 57 Respiratory 20 20 16 Rate Blood Pressure 144/73 111/52 112/58 (mmHg) O2 Sat by Pulse 97 100 99 Oximetry Intake and Output Last 24 Hours 02/24/18 02/25/18 02/26/18 02/27/18 06:59 06:59 06:59 06:59 Intake Total 1062.6 2759 2946 240 Balance 1062.6 2759 2946 240 Weight 179 lb 14.355 oz 182 lb 12.211 oz Intake: IV Fluids 1062.6 1958 1949 ABX - VANCOMYCIN 30 299 NS (0.9%) 1928 1650 IVPB 500 296 ABX - VANCOMYCIN 500 296 Oral 300 700 240 Other: Estimated Void Medium Medium Medium # Bowel Movements 1 Estimated Stool Amount Medium # Voids 2 3 2 Oxygen Devices in Use Now: None Neurology Exam: General: HEENT: Normocephalic/atraumatic, sclera anicteric, mucous membranes dry Neck: Supple Chest: Clear to auscultation bilaterally Cardiovascular: Regular rate and rhythm without murmurs, rubs, gallops Abdomen: Soft, nontender/nondistended Extremities: No clubbing, cyanosis, or edema Neurological Findings: Awake, Alert, Oriented x3 Speech: fluent without dysarthric, repetition intact Cranial Nerve: PEERL, EOM intact, VFF, no nystagmus, face symmetric bilaterally , slight loss of LT/PP in left face, hearing intact to finger rub bilaterally, palate elevates symmetrically, tongue midline, SCM and Trapezius s/s. Motor: 5/5 throughout, proximal and distal extremities x4 tone/bulk normal, no drift Sensation: 10-20% loss of LT/PP in the left arm/leg compared to right. Finger to nose, rapid alternating movements intact without tremor Result Diagrams: 02/25/18 06:10 02/26/18 05:16 Microbiology and Other Data: Microbiology 02/23/18 22:54 Nasal Screen MRSA (PCR) - Final Nasal Mrsa Detected Assessment/Plan Assessment: 28 year old with history of heroin abuse, last used 4 days ago. Denies any prior IV drug use, present with left sided numbness, tingling, weakness and embolic strokes in [employer] distribution, s/p tPA > 24 hour ago, repeat CT negative for hemorrhage, on ASA and Plavix, now with positive bloods, concern for endocarditis but no evidence on TTE, although possible PFO, LE dopps negative. 1. Embolic stroke --Plan for ELMA tomorrow, will need to be NPO. Rule out endocarditis as source of emboli --No clear cut evidence for source of emboli. Continue ASA/Plavix for now. --Hypercoaguable panel pending 2. Positive blood cultures. Concern for endocarditis. Denies IV drug use --MRSA negative. --Currently on Abx--Vanc. ID following 3. Like Heroin w/d: now with n/v/d, tachycardia. Discussed Suboxone with Dr. Almaguer who is going to consider. 4. Smoking cessation: he has been advised to remain on the floor and not go down to smoke.
[2018-02-26] MEDS: Loperamide CAP* 2 MG PO PRN ×2 (12:17→18:12)
[2018-02-26] MEDS: Buprenorp/Nalox 8-2 MG SL TAB.SL PO SCH ×2 (14:14→20:19)
[2018-02-27] MEDS: Vancomycin(*) 1,250 MG in NS 0.9% 250 ML* 250 ML IVPB SCH ×4 (00:50→20:01)
[2018-02-27] MEDS ORDERED: Vancomycin Trough Check NOTE FOLLOW UP ONE (05:30)
[2018-02-27 06:47] LABS: Vancomycin Trough 15.1 mcg/mL
[2018-02-27] MEDS: Nicotine PATCH 21 MG/24 HR* PATCH TRANSDERM SCH (08:14)
[2018-02-27] MEDS: Clopidogrel TAB* 75 MG PO SCH (08:15)
[2018-02-27] MEDS: Buprenorp/Nalox 8-2 MG SL TAB.SL PO SCH ×2 (08:15→21:06)
[2018-02-27] MEDS: Nicotine Patch Removal NOTE FOLLOW UP SCH (08:16)
[2018-02-27] MEDS: Aspirin EC TAB* 81 MG TAB.EC PO SCH (08:16)
[2018-02-27] MEDS ORDERED: Naloxone* 0.4 MG/ML 1 ML VIAL ONE (09:48)
[2018-02-27] MEDS ORDERED: Flumazenil* 0.1 MG/ML 5 ML MDV ONE (09:48)
[2018-02-27] MEDS ORDERED: Midazolam* 1 MG/ML 10 ML VIAL (10 MG) ONE ×2 (09:48→09:57)
[2018-02-27] MEDS ORDERED: fentaNYL* 50 MCG/ML 2 ML VIAL (100 MCG VIAL) ONE ×2 (09:48→09:57)
[2018-02-27] MEDS ORDERED: Lidocaine 2% VISCOUS* 15 ML UDC ONE (09:49)
[2018-02-27] MEDS ORDERED: Ondansetron INJ* 2 MG/ML VIAL ONE (09:58)
--- NOTE | 2018-02-27 10:45 | CONS ---
CONSULTATION REPORT: DATE OF CONSULT: 02/27/18 REQUESTING PROVIDER: Renuka Mcmillan NP. CONSULTING SERVICE: Infectious Disease. REASON FOR CONSULTATION: Question endocarditis. IMPRESSION: 1. Sudden onset left-sided numbness and tingling with an MRI showing small focused restricted diffusion in the right thalamus, multiple punctate foci restricted diffusion in the inferior cerebellar hemispheres which were subacute. He did have Staphylococcus epidermidis in 2 of 2 blood culture bottles and Staph hominis in 1 of 2 blood culture bottles. He has had no recent constitutional symptoms. His CRP is 1. He had a couple of low grade fevers here. Taken together, I think infective endocarditis is less likely. His transesophageal echocardiogram is pending. He had followup blood cultures 24 hours after admission that were negative for 4 of 4 bottles. It does not look like he got any antibiotics in between the 2 sets of cultures. 2. Allergy to CEFACLOR. RECOMMENDATION: We will continue the vancomycin while awaiting his ELMA result. However, I think it is going to be less likely that this represents an infectious endocarditis and agree with further workup for other causes of his subacute stroke. HISTORY OF PRESENT ILLNESS: This is a 28-year-old man who came to the hospital on Tuesday with a sudden onset of left arm, leg and body numbness and tingling without weakness. He had MRI with findings as above. He was seen by Neurology and had TPA. He did not have any recent fevers, chills, or sweats at home. He was eating about normally. His weight has been stable. He had no fever here until the 12th in the evening at 38.1 and none since then. Blood cultures taken on the evening of the , 2 of 2 grew Staph epidermidis, 1 or 2 grew Staph hominis. Followup cultures taken on the the following evening were 4 of 4, no growth. He has no joint or spine pain. No fevers, chills, or sweats here. His appetite is good. He is anxious for his ELMA. He had a transthoracic echocardiogram that showed ejection fraction of 55% to 60%. No aortic regurgitation or stenosis. No mitral regurgitation. The mitral valve leaflets were mildly thickened. Tricuspid valve leaflets were normal. PFO could not be excluded. He had an ultrasound of his legs that was negative. He has a hypercoagulable workup pending. PAST MEDICAL HISTORY: None. MEDICATIONS: 1. Tylenol. 2. Aspirin. 3. Suboxone. 4. Plavix. 5. Nicotine inhaler. 6. Nicotine patch. 7. Vancomycin 1250 mg IV every 6 hours. ALLERGIES: CEFACLOR. FAMILY HISTORY: Stroke in his mother in her 50s. No blood clotting. SOCIAL HISTORY: He lives in [facility] with his girlfriend and son. 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 No injury to his arms or legs. He denies injection drugs. Interestingly, the nurse has noted extreme phobia with placement of IV here. REVIEW OF SYSTEMS: All negative except 14-point review of systems except as noted above in the history of present illness. PHYSICAL EXAM: Vital Signs: Temperature 37, heart rate 70, respiratory rate 18 , blood pressure 123/63, oxygen saturation 99% on room air. In general, he is awake, not in distress Neurologic: He is oriented x3, follows all commands. Cranial nerves II through XII are intact. Sensation is intact to light touch in the upper and lower extremities bilaterally. HEENT: There is no conjunctival hemorrhage. Oropharynx without lesions. Neck: Supple without mass. Heart: Regular rate and rhythm without murmurs, rubs, or gallops. Lungs : Clear to auscultation bilaterally. Abdomen: Soft, nontender, nondistended. There are bowel sounds present. Skin: There is no rash or splinter hemorrhage. Musculoskeletal: There is no spine tenderness to palpation or joint synovitis. There are no areas of track jung. DIAGNOSTIC STUDIES/LAB DATA: White blood cell count 8, hemoglobin 14, platelets 173,000. Creatinine 0.7. CRP 1.8. Urinalysis shows no blood. Toxicology positive for opiates and cannabinoids. HIV antibody negative. Please see impression and recommendations outlined above. Thank you for asking me to see Mr. Luciano in consultation. [id number]/[facility] #: [id number] LOGAN
[2018-02-27] MEDS ORDERED: Buffered Lidocaine 0.9% SYRIN* 5 ML/SYR SYRINGE INTRADERM ONE (12:20)
--- NOTE | 2018-02-27 14:01 | PN ---
Subjective Date of Service: 02/27/18 Interval History: Mr. Luciano feels better this morning. He feels as though his withdrawal symptoms have resolved after starting suboxone and he would like to continue this. He is interested in getting set up with the [facility] after d/c. He is having some right hand "tingling" which started after an IV infiltrated late yesterday. He states this is different from the tingling in his left hand. No perceived weakness on the right side. Left hand paresthesia improving. He denies any left sided weakness, but his s/o feels as though his gait is different from his baseline. Has been up ambulating around the unit without difficulty. States he feels "not myself" and this is troubling to him. He is nervous for ELMA today and thinks he may wake up during the procedure. He did not sleep well last night because of this. He denies CP, SOB, dizziness, N/V/D. No pain. Family History: Unchanged from Admission Social History: Unchanged from Admission Past Medical History: Unchanged from Admission Objective Active Medications: Acetaminophen (Tylenol Tab*) 650 mg PO Q6H PRN Aspirin (Aspirin Ec Tab*) 81 mg PO DAILY [facility] Buprenorphine/Naloxone (Suboxone 8-2 Mg Sl Tab*) 1 tab.sl PO BID [facility] Clopidogrel Bisulfate (Plavix Tab*) 75 mg PO DAILY [facility] Device (Nicotine Mouth Piece*) 1 each INH .USE WITH NICOTROL PRN Vancomycin HCl 1,250 mg/ (Sodium Chloride) 250 mls @ 166.667 mls/hr IVPB Q6HR [facility] Potassium Chloride/Sodium Chloride (Ns 0.9% W/ 20 Meq Kcl 1000 Ml*) 1,000 mls @ 150 mls/hr IV PER RATE [facility] Lactated Ringer's (Lactated Ringers 1000 Ml Bag*) 1,000 mls @ 125 mls/hr IV PER RATE [facility] Loperamide HCl (Imodium Cap*) 2 mg PO .SEE DIRECTIONS PRN Nicotine (Nicotine Inhaler*) 10 mg INH Q2H PRN Nicotine (Nicotine Patch 21 Mg/24 Hr*) 1 patch TRANSDERM DAILY [facility] Ondansetron HCl (Zofran Inj*) 4 mg IV Q6H PRN Pharmacy Consult (Vancomycin Per Pharmacy*) 1 note FOLLOW UP .VANC PER PHARMACY [facility] Pharmacy Profile Note (Nicotine Patch Removal Note*) 1 note FOLLOW UP 0600 [facility] Pharmacy Profile Note (Vancomycin Trough Check) 1 note FOLLOW UP 0530 [facility] Vital Signs - 8 hr 02/27/18 02/27/18 02/27/18 07:30 07:50 08:15 Temperature 98.8 F Pulse Rate 72 Respiratory 20 18 20 Rate Blood Pressure 123/63 (mmHg) O2 Sat by Pulse 98 99 Oximetry 02/27/18 02/27/18 02/27/18 11:40 12:46 13:03 Temperature 98.3 F 98.2 F Pulse Rate 63 76 Respiratory 16 18 18 Rate Blood Pressure 99/58 105/62 (mmHg) O2 Sat by Pulse 99 100 Oximetry Oxygen Devices in Use Now: None Appearance: Young adult male sitting in bed in NAD Eyes: No Scleral Icterus, PERRLA Ears/Nose/Mouth/Throat: NL Teeth, Lips, Gums, Mucous Membranes Moist Neck: NL Appearance and Movements; NL JVP, Trachea Midline Respiratory: Symmetrical Chest Expansion and Respiratory Effort, Clear to Auscultation Cardiovascular: NL Sounds; No Murmurs; No JVD, RRR, No Edema Abdominal: NL Sounds; No Tenderness; No Distention, No Hepatosplenomegaly Extremities: No Clubbing, Cyanosis Skin: No Rash or Ulcers Neurological: Alert and Oriented x 3, NL Sensation, NL Muscle Strength and Tone Lines/Tubes/Other Access: Clean, Dry and Intact Peripheral IV Nutrition: Taking PO's Result Diagrams: 02/25/18 06:10 02/27/18 06:06 Assess/Plan/Problems-Billing Assessment: 28 yo male with a PMH of heroin/opioid abuse who presented to the emergency room on 02/23 with speech difficulty with word finding, weakness, paresthesias and numbness on left side who received tPA with concern for stroke found to have an embolic CVA, now with gram positive blood cx and concern for endocarditis. - Patient Problems (1) Ischemic cerebrovascular accident (CVA) Current Visit: Yes Status: Acute Priority: High Code(s): I63.9 - CEREBRAL INFARCTION, UNSPECIFIED SNOMED Code(s): 520771494 Comment: - S/p tPA on 02/23 - MRI brain shows nonhemorrhagic embolic infart with multiple inferior cerebellar bilateral subacute, small focus of restricted diffucion within the right thalamus, and within the posterior circulation distribution - Repeat CT Brain - 24 hr s/p tPA protocol - negative for bleed - Started ASA/Plavix evening 02/24 - continue daily; depending on ELMA may require anticoagulation - Head/Neck CTA negative, LE doppler negative for DVT, lipid WNL - Neurology following - Hypercoagulable workup pending, negative so far - Echo shows late bubbles seen crossing the left ventricle but nondiagnostic of PFO - plan for ELMA tuesday - No noted afib on tele monitoring, neurology recommended loop recorder as outpt (2) Positive blood culture Current Visit: Yes Status: Acute Priority: High Code(s): R78.81 - BACTEREMIA SNOMED Code(s): 936267625 Comment: - Concern for endocarditis, blood cx growing staph epidermidis, PCR negative for MSSA/MRSA, may be contamination - Continue vanco until ELMA results obtained - ID consult appreciated - ELMA attempted today, but they were unable to sedate patient; plan for ELMA under general anesthesia tomorrow (3) Opioid abuse Current Visit: Yes Status: Acute Priority: High Code(s): F11.10 - OPIOID ABUSE, UNCOMPLICATED SNOMED Code(s): 8127664 Comment: - Heroin abuse, reports he uses a little everyday to prevent from getting dope sick - is adament he does not use needles and has a severe fear of needles - HIV negative - Social work consult - Continue suboxone; Brielle Meneses NP will work with patient to arrange outpatient treatment (4) Nicotine abuse Current Visit: Yes Status: Chronic Priority: Medium Code(s): Z72.0 - TOBACCO USE SNOMED Code(s): 119745515 Comment: - Nicotine replacement (5) Full code status Current Visit: Yes Status: Acute Priority: High Code(s): Z78.9 - OTHER SPECIFIED HEALTH STATUS SNOMED Code(s): 330857138 (6) DVT prophylaxis Current Visit: Yes Status: Acute Priority: High Code(s): CSX0280 - SNOMED Code(s): 080961218 Comment: - SCDs and ambulation Status and Disposition: Inpatient. Discharge when medically stable. Social work following.
--- NOTE | 2018-02-27 15:18 | PN ---
Hospitalist Progress Note Date of Service: 02/27/18 Medication Assisted Therapy PARTS CATALOGUER Note: Delvis is a 28 yo male with history of opioid use disorder and dependence, seen today to discuss medication assisted therapy with Suboxone. He has been started on Suboxone 8 mg BID here in the hospital with good response. He is currently resting comfortably and is s/p ELMA procedure today. He is very sleepy and not able to actively engage much. Will reattempt visit tomorrow morning. Agree with current Suboxone dosing. Will plan to have patient follow up with myself or another practitioner at [facility] for MAT and primary care (if he desires).
[2018-02-28] MEDS: Vancomycin(*) 1,250 MG in NS 0.9% 250 ML* 250 ML IVPB SCH ×3 (02:12→15:56)
[2018-02-28] MEDS: Nicotine Patch Removal NOTE FOLLOW UP SCH (06:06)
[2018-02-28 07:10] LABS: EGFR Non-African American 125.9 (>60)
[2018-02-28] MEDS: Nicotine PATCH 21 MG/24 HR* PATCH TRANSDERM SCH (07:59)
--- NOTE | 2018-02-28 08:03 | PN ---
Hospitalist Progress Note Date of Service: 02/28/18 Medication Assisted Therapy (MAT) Follow-Up Note: S: Delvis is a 28 yo male with history of opioid use disorder, who is s/p CVA , seen today in follow up for medication assisted therapy consult. He endorses a history of heroin use, denies injecting but does report snorting. Delvis denies any acute complaints, other than some anxiety regarding having to repeat his ELMA today due to resistance to sedation yesterday. He reports doing well on Suboxone; he does not have a prior script for Suboxone but has obtained doses from [employer]. He was using 1 to 2 films a day when able to obtain it; reports films are hard to tolerate, cause nausea/vomiting. The tabs have been more effective and do not give him the side effects of the films. His current dose of 8 mg BID has been appropriate, and he denies cravings or breakthrough withdrawal symptoms. He does have social support from his girlfriend and mother. He is interested in establishing primary care through [facility] and does not identify any transportation barriers to getting to the clinic. O: Young, well appearing, well nourished male, lying in bed, in NAD Makes good eye contact, above average intelligence, thought content congruent, normal affect, very pleasant AOX3 No respiratory distress RRR Actively HERRING, no focal deficits, speech clear A: 28 yo male with opioid dependence, s/p heroin use and recent CVA 2/2 embolic causes. Still in need of ELMA to fully r/o endocarditis and evaluate for PFO. Thought to have concurrent infection but positive blood cx may be 2/2 contaminant. P: I will send a 7 day script for Suboxone tablets 8 mg BID to [facility] for the patient to obtain upon discharge. He will follow up with me on at [facility] for MAT intake and primary care initial visit. Appointment time pending. If he is not discharged before the , this appointment can be rescheduled by calling [phone].
[2018-02-28] MEDS: Clopidogrel TAB* 75 MG PO SCH (09:01)
[2018-02-28] MEDS: Buprenorp/Nalox 8-2 MG SL TAB.SL PO SCH (09:01)
[2018-02-28] MEDS: Aspirin EC TAB* 81 MG TAB.EC PO SCH (09:01)
[2018-02-28] MEDS ORDERED: Midazolam* 1 MG/ML 5 ML VIAL (5 MG) ONE (11:52)
[2018-02-28] MEDS ORDERED: Propofol* 10 MG/ML 20 ML BTL IV PUSH ONE (11:52)
[2018-02-28] MEDS ORDERED: Lidocaine 2% PF * 5 ML VIAL ONE (11:53)
[2018-02-28] MEDS ORDERED: Naloxone* 0.4 MG/ML 1 ML VIAL IV PRN (12:46)
[2018-02-28] MEDS ORDERED: Ondansetron INJ* 2 MG/ML VIAL IV PRN (12:46)
[2018-02-28] MEDS ORDERED: Ibuprofen TAB* 600 MG PO PRN (12:46)
[2018-02-28] MEDS ORDERED: DiMENhydriNATE IV* 50 MG/ML VIAL IV PUSH PRN (12:46)
[2018-02-28] MEDS ORDERED: Acetaminophen TAB* 325 MG PO PRN (12:46)
--- NOTE | 2018-02-28 16:38 | PN ---
Subjective Date of Service: 02/28/18 Length of Stay: 5 Days Neurology is following for the evaluation and management of stroke Interval History: ELMA was done today which showed a PFO without evidence of endocarditis. The patient has some residual subjective sensation of pins and needles in the area of the left 3-4-5th digits. No other complaints. Eager to go home. Review of Systems: 14 point ROS negative except as noted above Family History: Unchanged from Admission Social History: Unchanged from Admission Past Medical History: Unchanged from Admission Objective Active Medications: Acetaminophen (Tylenol Tab*) 650 mg PO Q6H PRN PRN Reason: FEVER/PAIN Aspirin (Aspirin Ec Tab*) 81 mg PO DAILY [facility] Last Admin: 02/28/18 09:01 Dose: 81 mg Buprenorphine/Naloxone (Suboxone 8-2 Mg Sl Tab*) 1 tab.sl PO BID [facility] Last Admin: 02/28/18 09:01 Dose: 1 tab.sl Clopidogrel Bisulfate (Plavix Tab*) 75 mg PO DAILY [facility] Last Admin: 02/28/18 09:01 Dose: 75 mg Device (Nicotine Mouth Piece*) 1 each INH .USE WITH NICOTROL PRN PRN Reason: CRAVING Last Admin: 02/24/18 11:56 Dose: 1 each Loperamide HCl (Imodium Cap*) 2 mg PO .SEE DIRECTIONS PRN PRN Reason: DIARRHEA Last Admin: 02/26/18 18:12 Dose: 2 mg Nicotine (Nicotine Inhaler*) 10 mg INH Q2H PRN PRN Reason: CRAVING Last Admin: 02/24/18 17:47 Dose: 10 mg Nicotine (Nicotine Patch 21 Mg/24 Hr*) 1 patch TRANSDERM DAILY [facility] Last Admin: 02/28/18 07:59 Dose: 1 patch Ondansetron HCl (Zofran Inj*) 4 mg IV Q6H PRN PRN Reason: NAUSEA Last Admin: 02/26/18 13:47 Dose: 4 mg Pharmacy Profile Note (Nicotine Patch Removal Note*) 1 note FOLLOW UP 0600 [facility] Last Admin: 02/28/18 06:06 Dose: 1 note Pharmacy Profile Note (Vancomycin Trough Check) 1 note FOLLOW UP 0730 ONE Stop: 03/01/18 07:31 Vital Signs 02/27/18 02/27/18 02/27/18 17:38 20:00 21:06 Temperature 98.4 F Pulse Rate 86 Respiratory 12 16 16 Rate Blood Pressure 105/62 (mmHg) O2 Sat by Pulse 100 100 Oximetry 02/27/18 02/27/18 02/28/18 21:38 23:08 02:47 Temperature 98.2 F Pulse Rate 101 70 Respiratory 12 16 18 Rate Blood Pressure 116/83 116/65 (mmHg) O2 Sat by Pulse 100 100 Oximetry 02/28/18 02/28/18 02/28/18 05:40 07:19 08:00 Temperature 98.2 F Pulse Rate 72 Respiratory 18 16 Rate Blood Pressure 119/69 (mmHg) O2 Sat by Pulse 100 98 Oximetry 02/28/18 02/28/18 02/28/18 08:01 09:01 11:01 Temperature 98.2 F Pulse Rate 79 Respiratory 16 18 18 Rate Blood Pressure 125/69 (mmHg) O2 Sat by Pulse 98 Oximetry 02/28/18 02/28/18 02/28/18 11:24 13:36 13:40 Temperature 97.0 F Pulse Rate 69 69 66 Respiratory 16 12 Rate Blood Pressure 133/83 89/49 88/50 (mmHg) O2 Sat by Pulse 100 98 98 Oximetry 02/28/18 02/28/18 02/28/18 13:45 13:50 13:55 Temperature Pulse Rate 63 59 47 Respiratory Rate Blood Pressure 97/55 98/59 100/67 (mmHg) O2 Sat by Pulse 97 98 100 Oximetry 02/28/18 02/28/18 02/28/18 14:00 14:15 15:43 Temperature 97.9 F Pulse Rate 47 45 64 Respiratory 16 Rate Blood Pressure 102/69 114/86 120/76 (mmHg) O2 Sat by Pulse 100 100 100 Oximetry 02/28/18 16:00 Temperature Pulse Rate Respiratory Rate Blood Pressure (mmHg) O2 Sat by Pulse 100 Oximetry Intake and Output Last 24 Hours 02/26/18 02/27/18 02/28/18 03/01/18 06:59 06:59 06:59 06:59 Intake Total 2946 4324 2260 700 Output Total 0 0 Balance 2946 4324 2260 700 Intake: IV Fluids 1950 2570 15 700 ABX - VANCOMYCIN 299 570 15 LR 700 NS (0.9%) 1651 ns0.9%20K 1999 IVPB 296 894 275 ABX - VANCOMYCIN 296 894 275 Oral 223 341 0829 0 Output: Urine 0 0 Other: Estimated Void Medium Large Medium # Bowel Movements 1 0 0 Estimated Stool Amount Medium # Voids 3 1 2 2 Oxygen Devices in Use Now: None Neurology Exam: General: Awake, Alert, Oriented x3 HEENT: Normocephelic/atraumstic, sclera anicteric, mucous membranes moist Neck: Supple Chest: Clear to auscultation bilaterally Cardiovascular: Regular rate and rhythm without murmurs, rubs, gallops Abdomen: Soft, nontender/nondistended Extremities: No clubing, cyanosis, or edema Neurological Findings: Awake, Alert, Oriented x3 Speech: fluent without dysarthria, repetition intact Cranial Nerve: PEERL, EOM intact, VFF, no nystagmus, face symmetric bilaterally , facial sensation intact, hearing intact to finger rub bilaterally, palate elevates symmetrically, tongue midline, SCM and Trapezius s/s. Motor: s/s throughout, proximal and distal extremities x4 tone/bulk normal Sensation: intact to LT/PP bilaterally upper and lower extremities Deep Tendon Reflex: 2+ symmetric in the upper/lower extremities, Babinski - down going Finger to nose, rapid alternating movements intact without tremor, no dysdiadochokinesia Result Diagrams: 02/25/18 06:10 02/28/18 06:43 Microbiology and Other Data: Microbiology 02/23/18 22:54 Nasal Screen MRSA (PCR) - Final Nasal Mrsa Detected Diagnostic Imaging: MRI brain reviewed. GIZZARD PEELER distribution strokes noted Assessment/Plan Assessment: GIZZARD PEELER distribution embolic strokes with PFO, gram positive blood cx and concern for endocarditis. Hypercoagulable workup negative thus far. Plan: Continue ASA 81 and Plavix 75 for now. Recommend Loop recorder and investigation for other cardioembolic sources of stroke Follow up with outpatient Neurology and perhaps pending further workup regimen can be simplified to ASA 325 daily without Plavix If no cardioembolic sources are identified, and if there is right to left shunting, patient might be a candidate for PFO closure. Maybe discharged home from a Neurologic standpoint
[2018-02-28 16:56] VITALS: BP 126/67
--- NOTE | 2018-02-28 17:12 | TEE ---
Patient: DEVIN YANEZ [facility] Rec#: [id number] : 1990 Date: 02/28/2018 Age: 28y Height: 180 cm / 70.9 in Weight: 77.1 kg / 169.9 lbs Sex: M BSA: 2 Room#: 443 Admit Date#: 02/28/2018 Type: Inpatient Referring: JYOTI PADRON Performing: Jace Alexander MD Reading: Jace Alexander MD Sap Data Architect: Maria Elena Ramesh RN RDCS Nurse: Robyn Boss RN Transesophageal Echocardiogram Indication: CVA, possible endocarditis BP: 112/69 HR: 74 Rhythm: NSR Findings History: Heroin and opioid use, smoker, admitted with CVA Technical Comments: The study quality is good. Left Ventricle: The left ventricular chamber size is normal. Global left ventricular wall motion and contractility are within normal limits. There is normal left ventricular systolic function. The estimated ejection fraction is 55-60%. The assessment of diastolic function is non-diagnostic. Left Atrium: The left atrial chamber size is normal. There is no thrombus visualized in the left atrial appendage. Right Ventricle: The right ventricular chamber size and systolic function are within normal limits. Right Atrium: The right atrial cavity size is normal. A patent foramen ovale is demonstrated by agitated contrast. The bubble study is positive for a few early bubbles crossing into the left atrium. There is also a small jet of [id number] flow by color Doppler. Aortic Valve: The aortic valve is trileaflet. There is no evidence of aortic regurgitation. There is no evidence of aortic stenosis. There is no aortic vegetation present. Mitral Valve: The mitral valve leaflets are mildly thickened. There is a trace of mitral regurgitation. There is no evidence of mitral stenosis. No vegetation is observed on the mitral valve. Tricuspid Valve: The tricuspid valve leaflets are normal. There is trace tricuspid regurgitation. There is no tricuspid stenosis. No vegetation is observed on the tricuspid valve. Pulmonic Valve: The pulmonic valve appears normal. There is a trace pulmonic regurgitation. There is no pulmonic stenosis. No vegetation is observed on the pulmonic valve. Pericardium: There is no significant pericardial effusion. Aorta: There is no dilatation of the ascending aorta. There is no dilation of the aortic root. There is no significant atherosclerotic plaque seen in the aorta. Pulmonary Artery: The main pulmonary artery appears normal. Venous: The bicaval view was obtained and appears normal. The pulmonary veins appear normal. 1 of 4 pulmonary veins is seen. ELMA Procedures: All standard views were attempted within the limitations of patient tolerance and safety. History and physical as well as labs were reviewed. The patient was in a fasting state. Risks and benefits of the procedure, including alternatives, were discussed and written informed consent was obtained. The patient and/or their health care architectural representative expressed understanding of the procedure, risks and benefits. Baseline and continuous monitoring of blood pressure, heart rate, pulse oximetry and heart rhythm was performed throughout the procedure. The appropriate time-out procedure was performed as per [facility] protocol. The patient was placed in the left lateral decubitus position. Sedation administered by the anesthesiologist in the operating room. See the OR record for details of medications administered by Dr. Mcqueen during the procedure. An oral bite block was inserted for protection of oral dentition. The multiplane transesophageal echocardiogram probe was inserted through the posterior oropharynx and advanced into the esophagus without difficulty. Multiple 2D images were obtained of the heart and its related structures. Color flow Doppler was used for evaluation. Spectral Doppler was also used. The atrial septum was interrogated with color flow Doppler. At the conclusion of the procedure the probe was removed with continuous suction without complications. The patient tolerated the procedure with no apparent complications. Contrast: Normal saline was used as contrast for the bubble study. Image 25. Conclusions Global left ventricular wall motion and contractility are within normal limits. There is normal left ventricular systolic function. The estimated ejection fraction is 55-60%. There is no thrombus visualized in the left atrial appendage. A patent foramen ovale is demonstrated by agitated contrast. The bubble study is positive for a few early bubbles crossing into the left atrium. There is also a small jet of [id number] flow by color Doppler. There is no evidence of aortic stenosis. There is a trace of mitral regurgitation. There is trace tricuspid regurgitation. No vegetation is observed on the tricuspid valve. No vegetation is observed on the mitral valve. There is no aortic vegetation present. There is no significant pericardial effusion. Measurements Name Value Normal Range Aortic Annulus 2.4 cm (1.4 - 2.6) Ao root diameter (2D) 3.5 cm (2.1 - 3.5) Ascending Ao 2.6 cm (2.1 - 3.4) Name Value Normal Range MV E-wave Vmax 0.61 m/sec - MV deceleration time 173 msec - MV A-wave Vmax 0.42 m/sec - MV E:A ratio 1.4 ratio - Name Value Normal Range AV Vmax 1.2 m/sec - AV VTI 25.1 cm - AV peak gradient 5.3 mmHg - AV mean gradient 3 mmHg -
[2018-02-28] MEDS ORDERED: Lacosamide TAB* 50 MG TAB PO SCH (21:00)
[2018-03-01] MEDS ORDERED: Vancomycin Trough Check NOTE FOLLOW UP ONE (07:30)
--- NOTE | 2018-03-01 14:49 | DS ---
AMENDED REPORT NOW INCLUDES COSIGNER DESIGNATION CC: [facility].* DISCHARGE SUMMARY: DATE OF ADMISSION: 02/23/18 DATE OF DISCHARGE: 02/28/18 PRIMARY CARE PROVIDER: Brielle Meneses NP. ATTENDING PHYSICIAN: Dr. Luis E Almaguer* (dictated by Renuka Mcmillan NP). PRIMARY DIAGNOSES: 1. Embolic cerebrovascular accident. 2. Positive blood culture. 3. Opioid abuse. 4. Nicotine abuse. SECONDARY DIAGNOSIS: 1. Polysubstance abuse. STUDIES WHILE IN THE HOSPITAL: 1. Brain CT on 02/23/18. Read as moderate paranasal sinus mucosal disease in this otherwise normal CT of the brain. 2. Chest x-ray on 02/23/18 reads as no radiographic evidence for acute cardiopulmonary abnormality. 3. Head CTA on 02/23/18 reads as normal head CTA. 4. Brain CT on 02/23/18 reads as no acute intracranial abnormality. 5. Transthoracic echocardiogram on 02/23/18 reads as normal left ventricular systolic function, estimated ejection fraction is 55% to 60%. Global left ventricular wall motion and contractility are within normal limits. Normal cardiac chamber sizes. Functionally benign heart valve. There were late bubbles seen crossing into the left ventricle after agitated saline infusion, so unable to definitive exclude a patent foramen ovale. There is no comparison study. 6. Brain CT on 02/24/[address] evidence of focal or territorial infarction corresponding to findings from a same day MRI of the brain, bilateral ethmoid air cell sinusitis. 7. Brain MRI on 02/24/18 reads as multiple punctate foci of restricted diffusion within the inferior cerebellar hemispheres bilaterally consistent with subacute nonhemorrhagic infarct. 8. Lower extremity venous Doppler study on 02/24/18 reads as normal bilateral lower extremity venous ultrasound. 9. Transesophageal echocardiogram on 02/28/18 reads as global left ventricular wall motion and contractility are within normal limits. Normal left ventricular systolic function. Estimated ejection fraction is 55% to 60%. No thrombus visualized in the left atrial appendage. A patent foramen ovale is demonstrated by agitated contrast and bubble study is positive for a few early bubbles crossing into the left atrium. There is also a small jet of left to right flow by color Doppler. No evidence of aortic stenosis. Trace mitral regurgitation. Trace tricuspid regurgitation. No vegetation is observed on the tricuspid valve. No vegetation is observed on the mitral valve. There is no aortic vegetation. There is no significant pericardial effusion. CONSULTATIONS WHILE IN THE HOSPITAL: 1. The patient was seen in consultation by Neurology beginning on 02/23/18 when he was seen by Dr. Kendrick. At that point the patient was in the process of receiving tPA. He recommended a urine tox screen, CTA, and echo. He recommended beginning him on a platelet agent for any arrhythmias or clots noted on the echo. Dr. Kendrick saw the patient again on 02/24/18. He noted that the etiology of the stroke was unclear and that it could be either basilar to downstream emboli or a cardiac embolic event. His heroin use may have been a contributing factor. He recommended placing the patient on aspirin and Plavix and obtaining a transesophageal echocardiogram. The patient was also followed by Dr. Feldman from Neurology during this admission who recommended continuing the aspirin and Plavix. Finally, the patient was seen by Dr. Scanlon from Neurology on 02/28/18 who recommended that the patient continue low-dose aspirin and Plavix for now. She recommended a loop recorder and investigation for other cardioembolic sources of stroke. She recommended Neurology followup as an outpatient and felt as though the patient was stable for discharge home from a neurology standpoint. 2. The patient was seen in consultation by Dr. Orozco from Infectious Disease on 02/27/18 for a concern for endocarditis and positive blood cultures. He recommended continuing the vancomycin while awaiting the results of the ELMA , although he felt as though it was unlikely that there was an infectious endocarditis. DISCHARGE MEDICATIONS: [place] Medications: 1. Aspirin 81 mg p.o. daily. 2. Plavix 75 mg p.o. daily. HISTORY OF PRESENT ILLNESS AND HOSPITAL COURSE: Mr. Luciano is a 28-year-old with past medical history of heroin abuse who presented to the emergency room on 02/23/18 with complaints of left-sided numbness and weakness and difficulty finding words. Please see the history and physical by ROD Goldberg, for a complete summary of the events leading up to this hospitalization. But in short, the patient was on the phone with the mother of his child when he suddenly began developing word-finding difficulty, weakness, paresthesias, and numbness on his left side. He immediately called EMS and was transported to the emergency room here at [facility]. He had an NIH stroke scale of 3. Brain CT was negative for bleed and he was given tPA. He was seen in consult by Dr. Kendrick as noted above. The patient noted that he had 2 similar episodes within the last couple of weeks, both of which resolved. The patient does use heroin but denies any IV drug use. He was admitted by the hospitalist service to the ICU for a post- tPA protocol. As noted above, the MRI brain was remarkable for ischemic strokes. A full workup was initiated. The patient was transferred out of the ICU with no complications from tPA. A hypercoagulability workup was ordered and at the time of discharge is unremarkable. A transthoracic echocardiogram was performed as noted above. The patient was noted to have blood cultures from 04/02 which were positive for Staph epidermidis and Staph hominis. There was a concern for endocarditis, hence he was seen by Infectious Disease as noted above. A transesophageal echocardiogram was attempted on 02/27/18 although the patient was not successfully sedated for the procedure. Therefore, the patient underwent a transesophageal echocardiogram under general anesthesia on . Results are noted above, thought it was unremarkable except for a PFO. Lower extremity ultrasounds were negative. The patient was placed on vancomycin for the concern for endocarditis though this was discontinued after the endocarditis was ruled out with the transesophageal echocardiogram. Ultimately, this was determined to be a contaminant. During the hospitalization , the patient did begin to experience significant withdrawal symptoms. He was placed on Suboxone on 02/26/18 after consultation with Brielle Meneses NP, form the [facility]. She did see the patient on 02/28/18 when it was determined that she would take over as his primary care provider and she would see him to prescribe outpatient Suboxone after discharge from the hospital. He did also require nicotine replacement. The patient had left-sided weakness and numbness that resolved throughout this hospitalization. On the day of discharge the patient had no notable left-sided weakness, although his gait appears to be slightly abnormal at this point. He does continue to have perceived numbness to the left upper extremity, though sensation is intact on exam. He was kept on telemetry throughout this admission and was noted to be in normal sinus rhythm the entire time. As noted above, Neurology cleared the patient for discharge on 02/28/18. Mr. Luciano is stable for discharge home today. Vital signs are as follows: Temperature 98.0, heart rate 91, respiratory rate 16, oxygen saturation 100% on room air, and blood pressure 126/67. DISCHARGE PLANS: Mr. Luciano will be discharged to home. Activity will be as tolerated. Diet will be regular as tolerated. New medications are noted above. The patient will be prescribed aspirin 81 mg daily and Plavix 75 mg daily. He will be following up with his PCP, Brielle Meneses NP, on 03/02/18. He should follow up with neurology in 2 to 4 weeks. He has been given information on his PFO and he should have a loop recorder placed. I have spoke with Brielle Meneses NP, who will refer him to cardiology when she sees him as an outpatient. The patient has been instructed to return to the emergency room or the nearest hospital for any worsening of symptoms, shortness of breath, lightheadedness, dizziness, chest discomfort, high fevers, chills, night sweats , loss of consciousness, or any other worrisome signs or symptoms. He is in agreement with plans for discharge. This is a summarized report of a complex medical history and hospital stay. For further details please see the entire medical record. TIME SPENT: Approximately 45 minutes was spent on this discharge, greater than half of that time spent [id number] with the patient and his significant other discussing discharge plans and instructions. RENUKA MCMILLAN NP [id number]/[facility] #: [id number] LOGAN
[2018-03-01 17:00] LABS: Prothrombin 20210 Mutation Heterozygous (Negative)
== END 2018-02-28 18:17 | disposition home or self-care (01) | DRG 45 ==
LOC: ED 16:35 → ICU 22:15 → MEDTELE 02-25 16:02
PROVIDERS: ADMIT Internal Medicine; ATTEND Internal Medicine
PROC: 3E03317 Introduction of Other Thrombolytic into Peripheral Vein, Percutaneous Approach (ICD-10-PCS; principal; 2018-02-23)
PROC: B24BZZ4 Ultrasonography of Heart with Aorta, Transesophageal (ICD-10-PCS; 2018-02-28)
DX: I63.9 Cerebral infarction, unspecified (principal); G81.94 Hemiplegia, unspecified affecting left nondominant side; R78.81 Bacteremia; F11.23 Opioid dependence with withdrawal; Q21.1 Atrial septal defect; R29.703 NIHSS score 3; F17.210 Nicotine dependence, cigarettes, uncomplicated; J45.909 Unspecified asthma, uncomplicated; F32.9 Major depressive disorder, single episode, unspecified; I08.1 Rheumatic disorders of both mitral and tricuspid valves; B95.7 Other staphylococcus as the cause of diseases classified elsewhere; R29.810 Facial weakness; F41.9 Anxiety disorder, unspecified; Z88.1 Allergy status to other antibiotic agents; Z82.49 Family history of ischemic heart disease and other diseases of the circulatory system; Z82.0 Family history of epilepsy and other diseases of the nervous system; Z72.89 Other problems related to lifestyle; Z82.3 Family history of stroke; Z79.02 Long term (current) use of antithrombotics/antiplatelets; Z79.82 Long term (current) use of aspirin
CPT/HCPCS: 36415; 70450; 70496; 70498; 70551; 71045; 80048; 80053; 80061; 80202; 80307; 81003; 81240; 81241; 82330; 83036; 83090; 83605; 83735; 84484; 85025; 85240; 85300; 85302; 85303; 85306; 85384; 85610; 85652; 85730; 86038; 86140; 86618; 86703; 86850; 86900; 86901; 87040; 87077; 87150; 87205; 87641; 93005; 93306; 93312; 93325; 93970; 99156; 99157; 99285; A9270-GY; J0696; J2250; J2310; J2405; J2704; J2997; J3010; J3370; J3475; Q9967

== ENCOUNTER 2018-10-14 00:58 | Emergency (ER) | payer OTHER ==
--- NOTE | 2018-10-14 04:14 | ED ---
Upper Extremity Pain - HPI Summary HPI Summary: The patient is a 28 y/o M presenting to [facility] with a chief complaint of falling on his right hand, causing swelling to the fifth finger with pain and decreased ROM tonight. He denies wrist pain and bruising. The pain is currently rated 8/ 10 in severity. The pain is aggravated by movement of the hand. - History of Current Complaint Chief Complaint: EDExtremityUpper Stated Complaint: "POS R BROKEN HAND" PER PT Time Seen by Provider: 10/14/18 04:01 Hx Obtained From: Patient Mechanism Of Injury: Fall From A Standing Position Onset/Duration: Started Hours Ago, Still Present Timing: Lasting Hours Severity Initially: Moderate Severity Currently: Moderate Pain Location: Hand - right hand at fifth finger Character: Aching Aggravating Factor(s): Movement Alleviating Factor(s): Rest Associated Signs & Symptoms: Positive: Other - decreased ROM. Negative: Bruising - Allergies/Home Medications Allergies/Adverse Reactions: Allergies Allergy/AdvReac Type Severity Reaction Status Date / Time cefaclor [From [facility]] Allergy Intermediate Rash Verified 10/14/18 01:01 Home Medications: Home Medications Rivaroxaban TAB(*) [Xarelto 20 mg] 20 mg PO DAILY 10/14/18 [History Confirmed ] PMH/Surg Hx/FS Hx/Imm Hx Endocrine/Hematology History: Denies: Hx Diabetes, Hx Thyroid Disease Cardiovascular History: Denies: Hx Hypertension, Hx Pacemaker/ICD Respiratory History: Reports: Hx Asthma Denies: Hx Chronic Obstructive Pulmonary Disease (COPD) GI History: Denies: Hx Ulcer Musculoskeletal History: Reports: Other Musculoskeletal History - deviated septum Sensory History: Denies: Hx Contacts or Glasses, Hx Hearing Aid Opthamlomology History: Denies: Hx Contacts or Glasses Neurological History: Reports: Hx Headaches, Other Neuro Impairments/Disorders - L sided weakness, numbness, tingling Psychiatric History: Reports: Hx Depression, Hx Substance Abuse Denies: Hx Eating Disorder, Hx Panic Disorder, Hx of Violent Episodes Against Others - Surgical History Surgery Procedure, Year, and Place: T&A- child. deviated septum - Immunization History Date of Tetanus Vaccine: last year, according to patient Infectious Disease History: No Infectious Disease History: Denies: Hx Clostridium Difficile, Hx Hepatitis, Hx Human Immunodeficiency Virus (HIV), Hx of Known/Suspected MRSA, Hx Shingles, Hx Tuberculosis, Hx Known/ Suspected VRE, Hx Known/Suspected VRSA, History Other Infectious Disease, Traveled Outside the [place] in Last 30 Days - Family History Known Family History: Positive: Cardiac Disease - Grandfather of [place] Negative: Hypertension, Diabetes - Social History Alcohol Use: Rare Hx Substance Use: Yes Substance Use Type: Reports: Marijuana Substance Use Comment - Amount & Last Used: opiates, snorts 02/10/17 Hx Tobacco Use: Yes Smoking Status (MU): Former Smoker Type: Cigarettes Amount Used/How Often: 5-10 daily Review of Systems Positive: Decreased ROM, Other - POSITIVE: swelling of the right hand at fifth finger; NEGATIVE: right wrist pain Negative: Bruising All Other Systems Reviewed And Are Negative: Yes Physical Exam - Summary Physical Exam Summary: Appearance: Well appearing, no pain distress Skin: warm, dry, reflects adequate perfusion Head/face: normal Eyes: EOMI, CLAIRE ENT: normal Neck: supple, non-tender Respiratory: CTA, breath sounds present Cardiovascular: RRR, pulses symmetrical Abdomen: non-tender, soft Musculoskeletal: deformity with tenderness at the lateral aspect of the right hand, neurovasculature intact, strength/ROM intact Neuro: normal, sensory motor intact, A&Ox3 Triage Information Reviewed: Yes Vital Signs On Initial Exam: Initial Vitals Temp Pulse Resp BP Pulse Ox 99.0 F 96 16 118/101 98 10/14/18 01:00 10/14/18 01:00 10/14/18 01:00 10/14/18 01:00 10/14/18 01:00 Vital Signs Reviewed: Yes Diagnostics - Vital Signs Vital Signs Temp Pulse Resp BP Pulse Ox 10/14/18 03:55 98 F 54 16 125/87 99 10/14/18 01:00 99.0 F 96 16 118/101 98 - Laboratory Lab Statement: Any lab studies that have been ordered have been reviewed, and results considered in the medical decision making process. - Radiology R Hand XR Radiology Interpretation Completed By: Radiologist Summary of Radiographic Findings: Fracture of the fifth metacarpal. ED physician has reviewed this radiology report. Course/Dx - Course Assessment/Plan: The patient is a 28 y/o M presenting to [facility] with a chief complaint of falling on his right hand, causing swelling to the fifth finger with pain and decreased ROM tonight. Upon physical exam, the patient exhibits deformity with tenderness at the lateral aspect of the right hand, neurovasculature intact. R Hand XR impression reveals fracture of the fifth metacarpal. Right hand was placed in splint by nurse Freda. He is diagnosed with fracture of the fifth metacarpal of the right hand. He will be discharged home with prescription for Ibuprofen. He will follow up with orthopedics in 1-2 days. He agrees with this plan and understands the need for return to the ED for any new or worsening symptoms. - Diagnoses Differential Diagnosis/HQI/PQRI: Positive: Contusion, Fracture (Closed) Provider Diagnoses: Fracture of fifth metacarpal bone of right hand Discharge - Sign-Out/Discharge Documenting (check all that apply): Patient Departure - Patient will be discharged home. Patient Received Moderate/Deep Sedation with Procedure: No - Discharge Plan Condition: Stable Disposition: HOME Prescriptions: Ibuprofen TAB* [Motrin TAB* 600 MG] 600 mg PO Q8H PRN #20 tab MDD 3 PRN Reason: Pain Patient Education Materials: Hand Fracture (ED) Referrals: Kirk Coyne MD [Medical Doctor] - 3 Days Additional Instructions: Please take medication as prescribed. Follow up with orthopedics in 1-2 days. RETURN TO THE EMERGENCY DEPARTMENT FOR ANY NEW OR WORSENING SYMPTOMS. - Billing Disposition and Condition Condition: STABLE Disposition: Home - Attestation Statements Document Initiated by Shavon: Yes Documenting Scribe: Merna Galloway Provider For Whom Shavon is Documenting (Include Credential): Dr. Ovidio Arambula MD Scribe Attestation: Merna Lewis scribed for Dr. Ovidio Arambula MD on 10/14/18 at 0453. Scribe Documentation Reviewed: Yes Provider Attestation: The documentation as recorded by the Merna coello accurately reflects the service I personally performed and the decisions made by me, Dr. Ovidio Arambula MD Status of Scriblucho Document: Viewed
[2018-10-14 04:49] VITALS: BP 129/55
== END 2018-10-14 04:51 | disposition home or self-care (01) ==
LOC: ED 00:58
DX: S62.396A Other fracture of fifth metacarpal bone, right hand, initial encounter for closed fracture (principal); W19.XXXA Unspecified fall, initial encounter; Y92.9 Unspecified place or not applicable; Z79.01 Long term (current) use of anticoagulants; Z88.1 Allergy status to other antibiotic agents; Z87.891 Personal history of nicotine dependence
CPT/HCPCS: 99282